=== PATIENT | female | born 1950 | race Caucasian/White ===

== ENCOUNTER → 2018-10-25 09:22 | Outpatient (CLI) | payer MEDICARE, SELFPAY ==
--- NOTE | 2018-10-25 09:31 | RAD_ITS ---
HISTORY: PAIN COMPARISON: None FINDINGS: XR Spine Cervical 3 Views: The cervical vertebra show normal height and alignment. No fracture or acute disease. Cervical disc space heights appear preserved. The posterior elements appear intact. No spondylolisthesis. The C1-C2 relationship appears normal. RAD/Cerv Spine 2 or 3 Views IMPRESSION: 1. No fracture or acute disease. No significant arthritis. 2. Cervical spine appears normal for age. at 0719 Reported and signed by: Narendra Garcia MD Electronically Signed: Narendra Garcia, at 7:17 EST Tel , Service support ,
--- NOTE | 2018-10-25 09:31 | RAD_ITS ---
HISTORY: PAIN COMPARISON: None FINDINGS: XR Spine Lumbar 2 views Generalized bony demineralization consistent with the patient's age. Lumbar hyperlordosis. Lumbar vertebra appear normal in height. No fracture seen. L4-5 and L5-S1 mild disc space narrowing. The posterior elements appear intact. No spondylolisthesis. SI joints appear preserved. Multiple surgical clips within the right abdomen. The abdominal aorta is atherosclerotic. RAD/Lumbar Spine 2 or 3 Views IMPRESSION: 1. No fracture or acute disease. 2. Mild degenerative changes. 3. Lumbar hyperlordosis. at 0723 Reported and signed by: Narendra Garcia MD Electronically Signed: Narendra Garcia, at 7:22 EST Tel , Service support ,
== END ==
PROVIDERS: Family Provider Family Medicine; PCP Family Medicine; Referring Provider Anesthesiology Pain Medicine; Visit Provider Anesthesiology Pain Medicine
DX: M54.2 Cervicalgia (principal); M54.9 Dorsalgia, unspecified
CPT/HCPCS: 72040; 72100

== ENCOUNTER → 2018-11-22 09:51 | Outpatient (CLI) | payer MEDICARE, SELFPAY ==
--- NOTE | 2018-11-22 10:13 | RAD_ITS ---
STUDY: X-RAY - LEFT KNEE REASON FOR EXAM: Female, 68 years old. Pain TECHNIQUE: 2 view(s) of the knee. COMPARISON: None. FINDINGS: There is no evidence of fracture or dislocation. There are no significant degenerative changes. There are no radiodense foreign bodies. RAD/Knee 1 or 2 Views IMPRESSION: Negative radiographs of the left knee. Electronically Signed: Morgan Ling, at 21:44 EST Tel , Service support ,
--- NOTE | 2018-11-22 10:14 | RAD_ITS ---
STUDY: X-RAY - RIGHT KNEE REASON FOR EXAM: Female, 68 years old. Pain TECHNIQUE: 2 view(s) of the knee. COMPARISON: None. FINDINGS: There is no evidence of fracture or dislocation. There are no significant degenerative changes. There are no radiodense foreign bodies. RAD/Knee 1 or 2 Views IMPRESSION: Negative radiographs of the right knee. Electronically Signed: Morgan Ling, at 21:41 EST Tel , Service support ,
[2018-11-22 11:14] LABS: Amphetamine Urine VISTA NEGATIVE (<1000 ng/mL); Barbiturate Urine VISTA NEGATIVE (< 200 ng/mL); Benzodiazepine Urine VISTA NEGATIVE (< 200 ng/mL); Cocaine Urine VISTA NEGATIVE (< 300 ng/mL); Ecstacy Urine VISTA POSITIVE (< 500 ng/mL); Methadone Urine VISTA NEGATIVE (< 300 ng/mL); PCP Urine VISTA NEGATIVE (< 25 ng/mL); THC Urine VISTA NEGATIVE (< 50 ng/mL); Vista UDS pH Range 5
== END ==
PROVIDERS: Family Provider Family Medicine; PCP Family Medicine; Referring Provider Anesthesiology Pain Medicine; Visit Provider Anesthesiology Pain Medicine
DX: F11.20 Opioid dependence, uncomplicated (principal); M25.569 Pain in unspecified knee
CPT/HCPCS: 73560; 80307

== ENCOUNTER → 2018-12-07 09:19 | Outpatient (CLI) | payer MEDICARE, SELFPAY ==
--- NOTE | 2018-12-07 09:35 | MRI_ITS ---
STUDY: MRI LUMBAR SPINE WITHOUT CONTRAST REASON FOR EXAM: Female, 68 years old. BACK AND LEG PAIN-LEFT SIDE; HX PRIOR SURGERY. TECHNIQUE: Standardized fat and water weighted pulse sequences were obtained in the sagittal and axial planes. COMPARISON: None FINDINGS: T12-L1: There is minimal disc space narrowing and endplate spondylosis. There is no significant disc herniation, central canal or foraminal stenosis. Normal lumbar lordosis. There is no substantial scoliosis. Normal conus medullaris that terminates at the L1 L1-2: There is minimal disc space narrowing and endplate spondylosis. There is no significant disc herniation, central canal or foraminal stenosis. L2-3: There is minimal disc space narrowing and endplate spondylosis. There is no significant disc herniation, central canal or foraminal stenosis. L3-4: There is minimal disc space narrowing and endplate spondylosis. There is no significant disc herniation, central canal or foraminal stenosis. L4-5: There is mild disc space narrowing and endplates spondylosis. There is a mild disc bulge asymmetric to the left with mild left lateral recess and mild left foraminal stenosis. There is a left hemilaminotomy. There is no significant central canal or right foraminal stenosis. L5-S1: There is mild disc space narrowing and endplates spondylosis. There is mild disc bulge and facet arthropathy without significant central canal or foraminal stenosis. There is a right laminectomy. Normal visualized sacral ala. Normal visualized paraspinous soft tissue structures. MRI/Spine Lumbar (Routine) IMPRESSION: L4/L5: Disc bulge with mild left lateral recess and foraminal stenosis. L5/S1: Right laminectomy. Electronically Signed: Jose Enrique Nicholas MD at 15:58 EDT Tel , Service support ,
== END ==
PROVIDERS: Family Provider Family Medicine; PCP Family Medicine; Referring Provider Anesthesiology Pain Medicine; Visit Provider Anesthesiology Pain Medicine
DX: M54.9 Dorsalgia, unspecified (principal); M79.606 Pain in leg, unspecified
CPT/HCPCS: 72148

== ENCOUNTER → 2018-12-29 09:38 | Outpatient (CLI) | payer MEDICARE, SELFPAY ==
--- NOTE | 2018-12-29 09:40 | NM_ITS ---
CLINICAL: 68-year-old female with reported history of primary lung carcinoma and current complaint of low back discomfort WHOLE BODY 99m Tc MDP RADIONUCLIDE BONE SCINTIGRAPHY COMPARISON: MRI of the lumbar spine report 12/07/2018 FINDINGS: Following the intravenous administration of 25.2 mCi of 99m Tc MDP, whole body bone images reveal: 1. Increased radiopharmaceutical concentration is identified in the acromioclavicular compartment of the right shoulder, bilateral elbows, right-left knees, the left hand. 2. The remaining skeletal structures are scintigraphically unremarkable with normal-appearing renal images and urinary bladder activity identified. An asymmetric increase in tracer concentration is defined in the left superior orbital ridge most consistent with a normal variant. NM/Bone Scan Whole Body IMPRESSION: 1. The increase in radiopharmaceutical concentration identified in the right shoulder, right and left elbows, left hand and knees bilaterally is most consistent with degenerative arthritis. 2. There is no definitive typical scintigraphic evidence of diffuse axial skeletal metastatic disease on the current examination. Electronically Signed: Lai Lujan DO at 21:59 EDT Tel , Service support ,
== END ==
PROVIDERS: Family Provider Family Medicine; PCP Family Medicine; Referring Provider Orthopaedic Surgery
DX: C34.90 Malignant neoplasm of unspecified part of unspecified bronchus or lung (principal)
CPT/HCPCS: 78306

== ENCOUNTER → 2019-01-05 16:58 | Outpatient (CLI) | payer MEDICARE, SELFPAY ==
--- NOTE | 2019-01-05 17:09 | MRI_ITS ---
STUDY: MRI LUMBAR SPINE WITH CONTRAST REASON FOR EXAM: Female, 68 years old. Preop for herniated nucleus pulposus TECHNIQUE: Standardized fat and water weighted pulse sequences were obtained in the sagittal and axial following administration of 14 IV Gadavist. COMPARISON: MRI of the lumbar spine on December 07, 2018 without contrast FINDINGS: T12-L1: Minor endplate spurring. Normal disc height, hydration and morphology. Normal bilateral facet joints. Normal central canal and bilateral lateral recesses. Normal bilateral intervertebral neural foramina. Normal lumbar lordosis. There is no substantial scoliosis. Normal conus medullaris that terminates at L1 L1-2: Minor disc space narrowing and endplate spurring. Normal hydration of the disc and morphology. Normal bilateral facet joints. Normal central canal and bilateral lateral recesses. Normal bilateral intervertebral neural foramina. L2-3: Minor endplate spurring and disc space narrowing. Normal hydration of the disc and morphology. Normal bilateral facet joints. Normal central canal and bilateral lateral recesses. Normal bilateral intervertebral neural foramina. L3-4: Minor endplate spurring. Normal disc height hydration and morphology Normal bilateral facet joints. Normal central canal and bilateral lateral recesses. Normal bilateral intervertebral neural foramina. L4-5: Status post left laminotomy. Mild disc space narrowing and endplate spurring. Desiccation of the disc with mild bulging of the annulus and small left posterolateral/foraminal disc protrusion. Asymmetric left facet arthropathy and thickening of ligamenta flava. Normal central canal bilateral recess and nerve root foramen. Moderate left lateral recess and neuroforaminal stenosis L5-S1: Status post right laminectomy. Normal endplates. Normal disc height, desiccation and minor annular bulge.. Normal bilateral facet joints. Normal central canal and bilateral lateral recesses. Normal bilateral intervertebral neural foramina. Normal visualized sacral ala. Normal visualized paraspinous soft tissue structures. Mild enhancing epidural fibrosis at the surgical sites most severe on the left L5-S1. No evidence for acute osteomyelitis or discitis MRI/Spine Lumbar WITH Contrast IMPRESSION: Postsurgical changes at L4-5 and L5-S1. Spinal stenosis on the left at L4-5 secondary to left posterolateral/foraminal disc protrusion and facet arthropathy. Minor annular bulge at L5-S1 without significant spinal stenosis. Electronically Signed: Ayo Espinoza MD at 18:55 EDT , Service support ,
== END ==
PROVIDERS: Family Provider Family Medicine; PCP Family Medicine; Referring Provider Orthopaedic Surgery; Visit Provider Orthopaedic Surgery
DX: M51.26 Other intervertebral disc displacement, lumbar region (principal)
CPT/HCPCS: 72149; A9575

== ENCOUNTER → 2019-01-11 16:17 | Outpatient (CLI) | payer MEDICARE, SELFPAY ==
[2019-01-11 17:26] LABS: Potassium 3.5 mmol/L (3.5-5.1)
== END ==
PROVIDERS: Family Provider Family Medicine; PCP Family Medicine; Referring Provider Family Medicine; Visit Provider Family Medicine
DX: E87.6 Hypokalemia (principal)
CPT/HCPCS: 36415; 84132

== ENCOUNTER 2019-08-12 11:08 | Observation (INO) | payer MEDICARE, SELFPAY ==
[2019-08-12] VITALS (8 sets, daily range): BP systolic 118–145; BP diastolic 62–87; PULSE 76–106; RESP 13–18; TEMP 36.7–37.1; O2SAT 96–99; BMI 23.5; BMI 23.6; BMI 23.7
--- NOTE | 2019-08-12 11:36 | CT_ITS ---
STUDY: CT ABDOMEN AND PELVIS WITH CONTRAST REASON FOR EXAM: Female, 69 years old. Nausea and vomiting and diarrhea for 3 days RADIATION DOSAGE (If Supplied By Facility): CTDIvol = ( 11.69 ) mGy, DLP = ( 656.62 ) mGycm TECHNIQUE: Transaxial images were obtained from the dome of the diaphragm to the symphysis pubis without oral contrast. IV Isovue 300 100 was administered. Sagittal and coronal images were reconstructed. Individualized dose optimization techniques were used for this CT. COMPARISON: None. FINDINGS: The visualized lung bases are unremarkable. The visualized portions of the heart are within normal limits. Normal liver. There are surgical clips in the gallbladder fossa consistent with a prior cholecystectomy. Expected prominence biliary system. Normal spleen. Normal pancreas. Normal bilateral adrenal glands. Normal right kidney. Normal left kidney. Normal visualized stomach. Fluid-filled distal small bowel and colon but no large or small bowel wall thickening. No mesenteric induration/inflammation. No large or small bowel obstruction. The appendix is visualized and appears normal. There is diffuse atherosclerotic calcification of the abdominal aorta, without a demonstrated aneurysm. Normal inferior vena cava. Normal retroperitoneum. Normal urinary bladder. Normal abdominal wall. There are degenerative changes of the lumbar spine. CT/Abdomen/Pelvis W IV Cont ONLY IMPRESSION: Distal small bowel and colon luminal fluid suggesting diarrheal disease/gastroenteritis. No bowel obstruction or large/small bowel wall thickening. Electronically Signed: Maynor Reese MD ([place]) at 13:29 EST , Service support ,
[2019-08-12] MEDS: Ondansetron 4 MG/2 ML Vial IV (11:52)
[2019-08-12] MEDS: Morphine 4 MG/ML Syringe IV ×3 (11:52→16:48)
[2019-08-12] MEDS: 0.9% Normal Saline 1,000 ML 1000 ML IV (11:53)
[2019-08-12 12:23] LABS: Absolute Neutrophil Count 6.4 X10^3/uL (2.0-7.7); Basophil# 0.01 X10^3/uL; Basophil% 0.1 % (0-1); Eosinophil# 0.12 X10^3/uL; Eosinophils% 1.5 % (0-5); Hematocrit 39.7 % (37-47); Hemoglobin 13.2 g/dL (12.0-15.0); Lymphocyte % 13.4 % (19-41); Mean Corp Hgb Conc 33.2 g/dL (32-36); Mean Corpuscular Volume 90.2 fL (81-99); Mean Platelet Vol. 9.6 fl (6.2-12.0); Monocyte# 0.58 X10^3/uL; Monocyte% 7.1 % (0-10); NRBC Flagged by Analyzer 0 % (0-5); Neutrophil # 6.38 X10^3/uL (2.7-7.7); Neutrophil % 77.7 % (47-70); POSITIVE MORPHOLOGY YES; Platelet Count 367 K/mm3 (150-450); RBC Distribution Width CV 12.6 % (11.6-14.6); RBC Distribution Width SD 41.6 fl (35.1-43.9); White Blood Count 8.2 K/mm3 (4.4-11.0)
[2019-08-12 12:24] LABS: Differential Indicated SCAN CRITERIA MET
[2019-08-12 12:52] LABS: ALB/GLOB Ratio 0.8 RATIO (0.9-2.4); AST(SGOT) 15 U/L (15-37); Alanine Aminotransfer ALT/SGPT 15 U/L (13-56); Albumin, Serum 3.5 g/dL (3.2-5.0); Alkaline Phosphatase 109 U/L (45-117); Anion Gap 11 (5-15); BUN 24 mg/dL (7-18); BUN/Creat Ratio 26.6 RATIO (10-20); Chloride 103 mmol/L (98-107); EST Glomerular Filtration Rate 66 mL/min (>60); Est Glom Filt Rate - Afr Amer 80 mL/min (>60); Estimated Creatinine Clearance 51.66 ml/min; Globulin 4.4 g/dL (2.2-4.2); Glucose 107 mg/dL (74-106); Lipase 66 U/L (73-393); Potassium 2.3 mmol/L (3.5-5.1); Protein, Total 7.9 g/dL (6.4-8.2); Sodium Level 139 mmol/L (136-145)
[2019-08-12 13:02] LABS: Magnesium 1.5 mg/dL (1.6-2.6)
[2019-08-12 13:35] LABS: Bacteria 0 SEEN /hpf (None Seen); Mucous, Urine 0 SEEN /hpf (<or=2+); White Blood Cells 0 SEEN /hpf (0-5)
[2019-08-12 13:38] LABS: Color, Urine Yellow (Yellow); Glucose, Dipstick Normal (Normal); Ketone-Dipstick 5 mg/dl (Negative); Leukocyte Esterase-Dipstick Negative /ul (Negative); Nitrite-Dipstick Negative (Negative); Occult Blood-Urine 25 /ul (Negative); Protein-Dipstick 30 mg/dl (Negative); Specific Gravity, Urine 1.015 (1.002-1.030); Urine Bilirubin Dipstick Negative (Negative); Urine Clarity Sl. Cloudy (Clear); Urine Urobilinogen Normal (Normal)
[2019-08-12] MEDS: Potassium Chloride 10mEq/100mL 10 MEQ/100 ML IV.SOLN. 100 MEQ IV BOLUS ×4 (13:42→17:03)
[2019-08-12 13:45] LABS: Red Blood Cells-Urine 0-5 SEEN /hpf (0-5); Squamous Epithelial Cells - UA 0-5 SEEN /hpf (5-10)
--- NOTE | 2019-08-12 13:54 | EKG12_ITS ---
Test Reason : N/V Blood Pressure : / mmHG Vent. Rate : 085 BPM Atrial Rate : 085 BPM P-R Int : 176 ms QRS Dur : 090 ms QT Int : 406 ms P-R-T Axes : 044 021 039 degrees QTc Int : 483 ms Normal sinus rhythm Normal ECG Confirmed by TALON SAMANO, EBONI ([id number]), staff editor JAGUAR CORREA ([id number]) on 08/15/2019 10:01:28 AM Referred By: Timo Buckley Confirmed By:EBONI HANLEY MD
--- NOTE | 2019-08-12 14:22 | ED.VISSUMM ---
- ER Visit Summary Date of Service: 08/12/19 Chief Complaint: Nausea, vomiting, diarrhea History of Present Illness: The patient is a 69 F with nausea, vomiting, and diarrhea since yesterday. Her had similar symptoms 3 days ago. They attributed it to bad fish. Diarrhea is nonbloody. She also reports lower abdominal cramping. History of hypokalemia, hypertension, and acid reflux. Denies fevers or any other associated symptoms. Physical Examination: Afebrile and vital signs unremarkable except for heart rate of 106. Heart is tachycardic. Lungs show no respiratory distress. Lower hemiabdomen tender to palpation without guarding or rebound. Skin appears normal. Test Results: EKG shows sinus rhythm at a rate of 85. CBC unremarkable. Potassium 2.3, magnesium 1.5. Hepatic panel and lipase unremarkable. Urinalysis unremarkable. CT shows findings concerning for diarrheal illness or gastroenteritis. Emergency Department Course and Treatment: Patient was treated with fluids, morphine, and Zofran while awaiting results. Testing indicated hypokalemia. Patient was monitored. EKG was done. She was treated with potassium. Magnesium was ordered. Work-up is consistent with a diarrheal illness or gastroenteritis. I am also concerned because of her hypokalemia. She will need admission for this. I spoke with the hospitalist and the patient will be observed in the PCU. Treatment Plan: As above Disposition: PCU observation Impression: 1. Diarrheal illness 2. Hypokalemia This note was generated with [employer] dictation software. It may contain incorrect words, spelling, and punctuation that were not noted in review of the chart prior to signing ED Disposition - Plan for ED Patient: Referrals: Carlito Rodrigues DO [Primary Care Provider] -
--- NOTE | 2019-08-12 15:11 | HP.PCM_ITS ---
Problem List (1) HTN (hypertension) Status: Chronic History of Present Illness Date of Admission: 08/12/19 Chief Complaint: Nausea, vomiting and diarrhea. The patient is a 69 year old F who presents to the emergency room due to intractable nausea, vomiting and diarrhea. Patient believes she got sick from fish that she cooked. She reports her and her had fish on Wednesday night and her became sick with similar symptoms shortly after. She then developed nausea, vomiting and diarrhea on and reports she has had about 20 bowel movements a day since that time and unable to tolerate oral intake due to nausea and vomiting. She denies blood in stool. Complains of abdominal cramping. Denies recent antibiotic use or exposure to sick contacts. She has a past medical history of lung cancer status post right middle lobe resection 5 years ago, hypertension, anxiety/depression, COPD, history of low potassium. Past Medical History Past Medical History (Chronic Problems): Chronic Problems HTN (hypertension) (Chronic) Allergies cyclobenzaprine [From Flexeril] Adverse Reaction (Verified 08/12/19 11:10) Other ARMS AND LEGS GO CRAZY tizanidine Adverse Reaction (Verified 08/12/19 11:10) Nausea Home Medications: Ambulatory Orders Medication Instructions Recorded Clonazepam 0.5 mg PO DAILY 08/12/19 Gabapentin [Neurontin] 400 mg PO BID 08/12/19 Hydrochlorothiazide [Hctz] 25 mg PO DAILY 08/12/19 Pantoprazole Sodium 40 mg PO DAILY 08/12/19 Potassium Chloride [Klor-Con] 20 meq PO DAILY 08/12/19 Umeclidinium [place] [Incruse 1 inh INHALATION DAILY 08/12/19 Ellipta] traZODone [Desyrel] 150 mg PO QHS 08/12/19 Surgical History: - - Tonsillectomy, cholecystectomy, appendectomy, hysterectomy, lumbar discectomy, renal surgery to correct renal torsion, right middle lobectomy. 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 Denies: Chills, Fever, Weight Change HEENT: Denies: Head Aches, Sinus Congestion, Sinus Drainage Cardiovascular: Denies: Chest Pain, Palpitations Respiratory: Denies: Cough, Shortness of breath at rest, Sputum production Gastrointestinal: Reports: Abdominal Pain, Diarrhea, Nausea, Vomiting. Denies: Hematemesis, Hematochezia, Melena Genitourinary: Denies: Dysuria Musculoskeletal: Denies: Joint Pain, Joint Tenderness Skin: Denies: Rash, Wounds Neurological: Denies: Numbness, Tingling, Focal weakness Psychiatric: Reports: Anxiety, Depression Hematologic/ Lymphatic: Denies: Easy Bruising, Easy Bleeding VTE Information - Inpt Only VTE Present on Admission: No VTE Mechan Device Prophylaxis: None VTE Pharm Prophylaxis ordered?: Yes - Physical Exam Vitals/I&O's: Vital Signs Temp Pulse Resp BP Pulse Ox 98.2 F 87 17 133/77 H 97 08/12/19 14:17 08/12/19 14:17 08/12/19 14:17 08/12/19 14:17 08/12/19 14:17 Oxygen Delivery Method Room Air Weight: 137 lb Body Mass Index (BMI) 23.5 Intake and Output for Last 24 Hours 08/10/19 08/11/19 08/12/19 23:59 23:59 23:59 Intake Total 1100 / 1100 Balance 1100 / 1100 General: Alert, Oriented x3, Cooperative HEENT: Atraumatic, PERRLA, EOMI, Normocephalic Oral: Dry Mucosa Neck: Supple, No JVD, Negative Carotid Bruits Lungs: Clear to auscultation, Normal air movement Cardiovascular: Regular rate, Regular Rhythm, Normal S1, Normal S2, No murmurs Abdomen: Bowel Sounds Present, Soft, Non-Distended, Hyperactive Bowel Sounds, Tender Extremities: No clubbing, No cyanosis, No edema, Capillary Refill Less than 3 Seconds Skin: No rashes, No breakdown Musculoskeletal: No Tenderness to Palpation of Joints or Extremities Neurological: Cranial nerves II-XII grossly intact, Neuro grossly intact Psych/Mental Status: Normal Affect, Appropriate Laboratory Results 08/12/19 11:40: WBC 8.2, RBC 4.40, Hgb 13.2, Hct 39.7, MCV 90.2, MCH 30.0, MCHC 33.2, RDW Std Deviation 41.6, RDW Coeff of Laura 12.6, Plt Count 367, MPV 9.6, Immature Gran % (Auto) 0.200, Neut % (Auto) 77.7 H, Lymph % (Auto) 13.4 L, [place]es % (Auto) 7.1, Eos % (Auto) 1.5, Baso % (Auto) 0.1, Absolute Neuts (auto) 6.4, Absolute Lymphs (auto) 1.10, Nucleated RBC % 0 08/12/19 11:40: Sodium 139, Potassium 2.3 L*, Chloride 103, Carbon Dioxide 25.0, Anion Gap 11, BUN 24 H, Creatinine 0.90, Estim Creat Clear Calc 51.66, Est GFR (MDRD) Af Amer 80, Est GFR (MDRD) Non-Af 66, BUN/Creatinine Ratio 26.6 H, Glucose 107 H, Calcium 9.0, Total Bilirubin 0.60, AST 15, ALT 15, Alkaline Phosphatase 109, Total Protein 7.9, Albumin 3.5, Globulin 4.4 H, Alb umin/Globulin Ratio 0.8 L, Lipase 66 L 08/12/19 11:40: Magnesium 1.5 L 08/12/19 13:30: Urine Color Yellow, Urine Clarity Sl. Cloudy, Urine pH 5.0, Ur Specific [place] 1.015, Urine Protein 30 H, Urine Glucose (UA) Normal, Urine Ketones 5 H, Urine Occult Blood 25 H, Urine Nitrite Negative, Urine Bilirubin Negative, Urine Urobilinogen Normal, Ur Leukocyte Esterase Negative, Urine RBC 0-5 SEEN, Urine WBC 0 SEEN, Ur Squamous Epith Cells 0-5 SEEN, Urine Bacteria 0 SEEN, Urine Mucus 0 SEEN Current Medications Potassium Chloride () 10 meq in 100 mls @ 100 mls/hr IV BOLUS Q1H NICHO Stop: 08/12/19 16:59 Last Admin: 08/12/19 14:46 Dose: 100 mls/hr Documented by: Assessment/Plan 1. Intractable nausea, vomiting and diarrhea-secondary to foodborne illness versus viral gastroenteritis. had similar symptoms. IV fluids. Full liquid diet. PRN antiemetic. 2. Hypokalemia/hypomagnesia-secondary to #1. Replace per protocol, trend BMP/Mg. 3. Hypertension-stable, hold home HCTZ regimen. 4. GERD-continue PPI. 5. Anxiety/depression-continue home clonazepam, trazodone regimen. 6. History of lung cancer status post right middle lobe resection-5 years ago, in remission. 7. Chronic COPD DVT prophylaxis- heparin sc This patient was seen by COREY Bruce under the supervision of Dr. Buckley.
[2019-08-12] MEDS: Magnesium Sulfate 4gm/100mL 4 GM/100 ML IV.SOLN. IV (17:14)
[2019-08-12] MEDS: Heparin Injection (Vial) 5,000 UNIT/ML VIAL 5000 UNIT SC (21:08)
[2019-08-12 22:29] LABS: Anion Gap 8 (5-15); BUN 17 mg/dL (7-18); BUN/Creat Ratio 27.4 RATIO (10-20); Calcium,Total 7.5 mg/dL (8.5-10.1); Chloride 111 mmol/L (98-107); Creatinine, Serum 0.62 mg/dL (0.55-1.02); EST Glomerular Filtration Rate 101 mL/min (>60); Est Glom Filt Rate - Afr Amer 123 mL/min (>60); Glucose 81 mg/dL (74-106); Potassium 3.1 mmol/L (3.5-5.1); Sodium Level 143 mmol/L (136-145)
[2019-08-13] VITALS (8 sets, daily range): BP systolic 125–140; BP diastolic 60–71; PULSE 64–87; RESP 16; TEMP 36.6–37.3; O2SAT 96–100
[2019-08-13] MEDS: Ondansetron 4 MG/2 ML Vial IV ×2 (00:41→08:58)
[2019-08-13] MEDS: Potassium Chloride 10mEq/100mL 10 MEQ/100 ML IV.SOLN. 100 MEQ IV BOLUS ×4 (01:50→04:40)
[2019-08-13 06:59] LABS: Anion Gap 7 (5-15); BUN 11 mg/dL (7-18); BUN/Creat Ratio 18.1 RATIO (10-20); Calcium,Total 7.2 mg/dL (8.5-10.1); Chloride 112 mmol/L (98-107); Creatinine, Serum 0.61 mg/dL (0.55-1.02); EST Glomerular Filtration Rate 104 mL/min (>60); Est Glom Filt Rate - Afr Amer 126 mL/min (>60); Glucose 66 mg/dL (74-106); Magnesium 2.4 mg/dL (1.6-2.6); Potassium 4.4 mmol/L (3.5-5.1); Sodium Level 141 mmol/L (136-145)
[2019-08-13] MEDS: Morphine 4 MG/ML Syringe IV ×4 (07:55→19:39)
[2019-08-13] MEDS: 0.9% Saline Lock 10 ML Syringe IV ×3 (07:56→16:19)
[2019-08-13] MEDS: Heparin Injection (Vial) 5,000 UNIT/ML VIAL 5000 UNIT SC ×2 (08:59→20:57)
--- NOTE | 2019-08-13 11:22 | PCM.PROGNOTE ---
Subjective: Patient seen and examined. Reports diarrhea improved overnight however worsened again early this morning. Patient reports history of C. difficile x2 in the past which she did not mention on admission. Will check stool for C. difficile and enteric bacteriology. Denies nausea or vomiting. Reports poor appetite. - Physical Exam Vitals/I&O's: Vital Signs Temp Pulse Resp BP Pulse Ox 98.4 F 78 16 125/64 H 96 08/13/19 09:13 08/13/19 09:13 08/13/19 09:13 08/13/19 09:13 08/13/19 09:13 Oxygen Delivery Method Room Air Weight: 138 lb Body Mass Index (BMI) 23.6 Intake and Output for Last 24 Hours 08/11/19 08/12/19 08/13/19 23:59 23:59 23:59 Intake Total 2447.09 / 2447.09 1261.67 / 1261.67 Balance 2447.09 / 2447.09 1261.67 / 1261.67 General: Alert, Oriented x3, Cooperative HEENT: Atraumatic, PERRLA, EOMI, Normocephalic Neck: Supple, No JVD, Negative Carotid Bruits Lungs: Clear to auscultation, Normal air movement Cardiovascular: Regular rate, Regular Rhythm, Normal S1, Normal S2, No murmurs Abdomen: Bowel Sounds Present, Soft, Hyperactive Bowel Sounds, Tender Extremities: No clubbing, No cyanosis, No edema, Capillary Refill Less than 3 Seconds Skin: No rashes, No breakdown Musculoskeletal: No Tenderness to Palpation of Joints or Extremities Neurological: Cranial nerves II-XII grossly intact, Neuro grossly intact Psych/Mental Status: Normal Affect, Appropriate Laboratory Results 08/12/19 11:40: WBC 8.2, RBC 4.40, Hgb 13.2, Hct 39.7, MCV 90.2, MCH 30.0, MCHC 33.2, RDW Std Deviation 41.6, RDW Coeff of Laura 12.6, Plt Count 367, MPV 9.6, Immature Gran % (Auto) 0.200, Neut % (Auto) 77.7 H, Lymph % (Auto) 13.4 L, [place] % (Auto) 7.1, Eos % (Auto) 1.5, Baso % (Auto) 0.1, Absolute Neuts (auto) 6.4, Absolute Lymphs (auto) 1.10, Nucleated RBC % 0 08/12/19 11:40: Sodium 139, Potassium 2.3 L*, Chloride 103, Carbon Dioxide 25.0, Anion Gap 11, BUN 24 H, Creatinine 0.90, Estim Creat Clear Calc 51.66, Est GFR (MDRD) Af Amer 80, Est GFR (MDRD) Non-Af 66, BUN/Creatinine Ratio 26.6 H, Glucose 107 H, Calcium 9.0, Total Bilirubin 0.60, AST 15, ALT 15, Alkaline Phosphatase 109, Total Protein 7.9, Albumin 3.5, Globulin 4.4 H, Albumin/Globulin Ratio 0.8 L, Lipase 66 L 08/12/19 11:40: Magnesium 1.5 L 08/12/19 13:30: Urine Color Yellow, Urine Clarity Sl. Cloudy, Urine pH 5.0, Ur Specific [place] 1.015, Urine Protein 30 H, Urine Glucose (UA) Normal, Urine Ketones 5 H, Urine Occult Blood 25 H, Urine Nitrite Negative, Urine Bilirubin Negative, Urine Urobilinogen Normal, Ur Leukocyte Esterase Negative, Urine RBC 0-5 SEEN, Urine WBC 0 SEEN, Ur Squamous Epith Cells 0-5 SEEN, Urine Bacteria 0 SEEN, Urine Mucus 0 SEEN 08/12/19 21:25: Sodium 143, Potassium 3.1 L, Chloride 111 H, Carbon Dioxide 24.0, Anion Gap 8, BUN 17, Creatinine 0.62, Estim Creat Clear Calc 46.50, Est GFR (MDRD) Af Amer 123, Est GFR (MDRD) Non-Af 101, BUN/Creatinine Ratio 27.4 H, Glucose 81, Calcium 7.5 L 08/13/19 05:33: Sodium 141, Potassium 4.4, Chloride 112 H, Carbon Dioxide 22.0, Anion Gap 7, BUN 11, Creatinine 0.61, Estim Creat Clear Calc 46.50, Est GFR (MDRD) Af Amer 126, Est GFR (MDRD) Non-Af 104, BUN/Creatinine Ratio 18.1, Glucose 66 L, Calcium 7.2 L, Magnesium 2.4 Current Medications Clonazepam (Klonopin) 0.5 mg PO DAILY [facility] Last Admin: 08/13/19 08:58 Dose: Not Given Documented by: Gabapentin (Neurontin) 400 mg PO BID [facility] Last Admin: 08/13/19 08:58 Dose: Not Given Documented by: Heparin Sodium (Porcine) (Heparin Na) 5,000 unit SC Q12 [facility] Last Admin: 08/13/19 08:59 Dose: 5,000 unit Documented by: Potassium Chloride/Sodium Chloride () 1,000 mls @ 150 mls/hr IV .Q6H40M [facility] Last Admin: 08/13/19 05:39 Dose: 150 mls/hr Documented by: Morphine Sulfate () 4 mg IV Q3H PRN PRN PRN Reason: Pain Score 6-10/10 Last Admin: 08/13/19 07:55 Dose: 4 mg Documented by: Nutritional Formula (Lactose Free) (Ensure Enlive) 120 ml PO 4X/DAY [facility] Last Admin: 08/13/19 08:58 Dose: Not Given Documented by: Ondansetron HCl (Zofran) 4 mg IV Q8H PRN PRN PRN Reason: NAUSEA/VOMITING Last Admin: 08/13/19 08:58 Dose: 4 mg Documented by: Pantoprazole Sodium (Protonix) 40 mg PO DAILY [facility] Last Admin: 08/13/19 08:59 Dose: Not Given Documented by: Potassium Chloride (K-Dur) 20 meq PO DAILYCM [facility] Last Admin: 08/13/19 07:38 Dose: Not Given Documented by: Sodium Chloride () 10 - 40 ml IV UD PRN PRN Reason: SALINE FLUSH Last Admin: 08/13/19 08:58 Dose: 10 ml Documented by: Trazodone HCl (Desyrel) 150 mg PO QHS [facility] Last Admin: 08/12/19 20:30 Dose: Not Given Documented by: Medical Necessity - Tobacco Use Smoking Status: Former smoker Assessment/Plan 1. Intractable nausea, vomiting and diarrhea-secondary to foodborne illness versus viral gastroenteritis. R/O Cdiff. Send stool for C. difficile and enteric bacteriology. IV fluids. Full liquid diet. PRN antiemetic. 2. Hypokalemia/hypomagnesia-secondary to #1. Replaced per protocol, resolved. 3. Hypertension-stable, hold home HCTZ regimen. 4. GERD-continue PPI. 5. Anxiety/depression-continue home clonazepam, trazodone regimen. 6. History of lung cancer status post right middle lobe resection-5 years ago, in remission. 7. Chronic COPD DVT prophylaxis- heparin sc This patient was seen by COREY Bruce under the supervision of Dr. Buckley.
[2019-08-14] VITALS (13 sets, daily range): BP systolic 123–148; BP diastolic 60–71; PULSE 77–91; RESP 16–18; TEMP 36.9–37.6; O2SAT 96–99
[2019-08-14] MEDS: Morphine 4 MG/ML Syringe IV ×3 (00:52→08:53)
[2019-08-14 06:20] LABS: Anion Gap 10 (5-15); BUN 5 mg/dL (7-18); BUN/Creat Ratio 8.1 RATIO (10-20); Calcium,Total 7.7 mg/dL (8.5-10.1); Chloride 109 mmol/L (98-107); Creatinine, Serum 0.62 mg/dL (0.55-1.02); EST Glomerular Filtration Rate 102 mL/min (>60); Est Glom Filt Rate - Afr Amer 123 mL/min (>60); Glucose 67 mg/dL (74-106); Potassium 3.8 mmol/L (3.5-5.1); Sodium Level 140 mmol/L (136-145)
[2019-08-14] MEDS: 0.9% Saline Lock 10 ML Syringe IV ×3 (08:53→22:33)
[2019-08-14] MEDS: Heparin Injection (Vial) 5,000 UNIT/ML VIAL 5000 UNIT SC ×2 (09:13→21:54)
--- NOTE | 2019-08-14 11:00 | CASEMGMT ---
This RN MARTHA to room with MERCADO form at this time, explanation done-pt voices understanding, and signs MERCADO form at this time. Original to chart and copy to pt at this time. Pt voices no further questions/concerns/needs at this time. [place]
--- NOTE | 2019-08-14 12:15 | PCM.PROGNOTE ---
Subjective: Patient seen and examined. Continues to have diarrhea although improved. Stool positive for C. difficile and norovirus, discussed in length with patient. Patient reports is still sick with diarrhea as well and is following up with his primary doctor this afternoon. - Physical Exam Vitals/I&O's: Vital Signs Temp Pulse Resp BP Pulse Ox 99.1 F 86 16 148/67 H 99 08/14/19 11:39 08/14/19 11:39 08/14/19 11:39 08/14/19 11:39 08/14/19 11:39 Oxygen Delivery Method Room Air Weight: 138 lb 0.009 oz Body Mass Index (BMI) 23.6 Intake and Output for Last 24 Hours 08/12/19 08/13/19 08/14/19 23:59 23:59 23:59 Intake Total 2447.09 / 2447.09 3969.17 / 3969.17 1062.5 / 1062.5 Balance 2447.09 / 2447.09 3969.17 / 3969.17 1062.5 / 1062.5 General: Alert, Oriented x3, Cooperative HEENT: Atraumatic, PERRLA, EOMI, Normocephalic Neck: Supple, No JVD, Negative Carotid Bruits Lungs: Clear to auscultation, Normal air movement Cardiovascular: Regular rate, Regular Rhythm, Normal S1, Normal S2, No murmurs Abdomen: Bowel Sounds Present, Soft, Non Tender, Non-Distended Extremities: No clubbing, No cyanosis, No edema, Capillary Refill Less than 3 Seconds Skin: No rashes, No breakdown Musculoskeletal: No Tenderness to Palpation of Joints or Extremities Neurological: Cranial nerves II-XII grossly intact, Neuro grossly intact Psych/Mental Status: Normal Affect, Appropriate Microbiology Past 72 Hours 08/13/19 14:39 Stool Enteric Bacteriology - Final Norovirus 08/13/19 14:39 Stool C. difficile DNA Amplification - Final Toxigenic C. difficile DNA Laboratory Results 08/14/19 05:35: Sodium 140, Potassium 3.8, Chloride 109 H, Carbon Dioxide 21.0, Anion Gap 10, BUN 5 L, Creatinine 0.62, Estim Creat Clear Calc 46.50, Est GFR (MDRD) Af Amer 123, Est GFR (MDRD) Non-Af 102, BUN/Creatinine Ratio 8.1 L, Glucose 67 L, Calcium 7.7 L Current Medications Clonazepam (Klonopin) 0.5 mg PO DAILY [facility] Last Admin: 08/14/19 08:56 Dose: Not Given Documented by: Gabapentin (Neurontin) 400 mg PO BID [facility] Last Admin: 08/14/19 08:56 Dose: Not Given Documented by: Heparin Sodium (Porcine) (Heparin Na) 5,000 unit SC Q12 [facility] Last Admin: 08/14/19 09:13 Dose: 5,000 unit Documented by: Potassium Chloride/Sodium Chloride () 1,000 mls @ 150 mls/hr IV .Q6H40M [facility] Last Admin: 08/14/19 07:00 Dose: 150 mls/hr Documented by: Morphine Sulfate () 4 mg IV Q3H PRN PRN PRN Reason: Pain Score 6-10/10 Last Admin: 08/14/19 08:53 Dose: 4 mg Documented by: Nutritional Formula (Lactose Free) (Ensure Enlive) 120 ml PO 4X/DAY [facility] Last Admin: 08/14/19 08:56 Dose: Not Given Documented by: Ondansetron HCl (Zofran) 4 mg IV Q8H PRN PRN PRN Reason: NAUSEA/VOMITING Last Admin: 08/13/19 08:58 Dose: 4 mg Documented by: Potassium Chloride (K-Dur) 20 meq PO DAILYCM [facility] Last Admin: 08/14/19 08:56 Dose: Not Given Documented by: Sodium Chloride () 10 - 40 ml IV UD PRN PRN Reason: SALINE FLUSH Last Admin: 08/14/19 08:53 Dose: 10 ml Documented by: Trazodone HCl (Desyrel) 150 mg PO QHS [facility] Last Admin: 08/13/19 19:40 Dose: Not Given Documented by: Vancomycin HCl () 125 mg PO Q6 [facility] Last Admin: 08/14/19 11:35 Dose: 125 mg Documented by: Medical Necessity - Tobacco Use Smoking Status: Former smoker Assessment/Plan 1. Acute C. difficile and acute norovirus-diarrhea improving. IV fluids. Continue vancomycin 125mg PO Q6 hours. Plan for 14 days of treatment. Full liquid. 2. Hypokalemia/hypomagnesia-secondary to #1. Replaced per protocol, resolved. 3. Hypertension-stable, hold home HCTZ regimen. 4. GERD-continue PPI. 5. Anxiety/depression-continue home clonazepam, trazodone regimen. 6. History of lung cancer status post right middle lobe resection-5 years ago, in remission. 7. Chronic COPD DVT prophylaxis- heparin sc This patient was seen by COREY Burce under the supervision of Dr. Buckley.
[2019-08-14] MEDS: Morphine 2 MG/ML Syringe IV ×3 (14:12→22:33)
[2019-08-15] MEDS: Morphine 2 MG/ML Syringe IV ×2 (01:58→06:24)
[2019-08-15] MEDS: 0.9% Saline Lock 10 ML Syringe IV ×3 (01:58→08:27)
[2019-08-15 02:59] VITALS: PULSE 75
[2019-08-15 05:38] VITALS: BP 141/74; PULSE 86; RESP 16; TEMP 37.3; O2SAT 97
[2019-08-15 07:40] VITALS: PULSE 83
[2019-08-15 08:03] VITALS: BP 145/72; PULSE 82; RESP 18; TEMP 37.2; O2SAT 99
[2019-08-15] MEDS: Ondansetron 4 MG/2 ML Vial IV (08:27)
[2019-08-15] MEDS: Heparin Injection (Vial) 5,000 UNIT/ML VIAL 5000 UNIT SC (10:40)
--- NOTE | 2019-08-15 11:03 | DCINST_ITS ---
- Discharge Diagnoses Current Active Problems: Current Active and Chronic Problems HTN (hypertension) (Chronic) You will use the following diet at home:: No restrictions Discharge Activity: Return to Normal Activity Call your doctor if you observe: Shortness of breath, Dizziness, Fainting spells, Chest pain Allergies/Adverse Reactions: Allergies cyclobenzaprine [From Flexeril] Adverse Reaction (Verified 08/12/19 11:10) Other ARMS AND LEGS GO CRAZY tizanidine Adverse Reaction (Verified 08/12/19 11:10) Nausea Medications to take at Discharge Clonazepam 0.5 mg PO DAILY 08/12/19 Gabapentin [Neurontin] 400 mg PO BID 08/12/19 Pantoprazole Sodium 40 mg PO DAILY 08/12/19 Potassium Chloride [Klor-Con] 20 meq PO DAILY 08/12/19 Umeclidinium [place] [Incruse Ellipta] 1 inh INHALATION DAILY 08/12/19 traZODone [Desyrel] 150 mg PO QHS 08/12/19 Dicyclomine HCl [Bentyl] 20 mg PO TID PRN #60 cap 08/15/19 Lisinopril [Zestril] 10 mg PO DAILY #30 tab 08/15/19 Vancomycin [Vancocin] 125 mg PO Q6H #40 cap 08/15/19 The following prescriptions were given: Dicyclomine HCl [Bentyl] 20 mg PO TID PRN #60 cap PRN Reason: abdominal cramping Transmission Status: Pending to [facility] #30 Vancomycin [Vancocin] 125 mg PO Q6H #40 cap Prescription Printed Lisinopril [Zestril] 10 mg PO DAILY #30 tab Transmission Status: Pending to [facility] #30 Primary Care Physician: Carlito Rodrigues DO [Primary Care Provider] - Please follow up with your Primary Care Physician in: 1 Week Test Results: Test results from this visit will be discussed in further detail at your follow- up appointment, if applicable. Proposed Discharge Date: 08/15/19
--- NOTE | 2019-08-15 11:05 | DS.PCM_ITS ---
Discharge Date and Diagnosis Date of Admission: 08/12/19 Date of Discharge: 08/15/19 - Primary Discharge Diagnosis 1. Acute C. difficile and acute norovirus 2. Hypokalemia/hypomagnesia-secondary to #1. Resolved. 3. Hypertension 4. GERD 5. Anxiety/depression 6. History of lung cancer status post right middle lobe resection-5 years ago, in remission. 7. Chronic COPD - Secondary Discharge Diagnosis Chronic Problems HTN (hypertension) (Chronic) Hospital Course and Treatment Imaging Results: Diagnostic Data Abdomen/Pelvis CT 08/12/19 11:36 IMPRESSION: Distal small bowel and colon luminal fluid suggesting diarrheal disease/gastroenteritis. No bowel obstruction or large/small bowel wall thickening. Electronically Signed: Maynor Reese MD ([place]) at 13:29 EST , Service support , Operations: None Procedures: None Summary of Care Provided: The patient is a 69 year old F admitted 08/12/2018 due to nausea, vomiting and diarrhea. 1. Acute C. difficile and acute norovirus-diarrhea improved. Continue vancomycin 125mg PO Q6 hours. Patient to complete 14 days of oral vancomycin. Recommend follow-up with primary care provider, if patient continues to have symptoms recommend discontinuing vancomycin for 1 week and then completing an additional 10-day course of oral vancomycin. Discharged on as needed Bentyl for abdominal cramping. Follow-up with primary care provider next week. 2. Hypokalemia/hypomagnesia-secondary to #1. Replaced per protocol, resolved. Home potassium supplementation discontinued given patient was taken off of HCTZ. Recommend repeat BMP by primary care provider in 1 week. 3. Hypertension-home HCTZ regimen discontinued due to chronic low potassium. Initiated on lisinopril 10 mg daily. 4. GERD-continue PPI. 5. Anxiety/depression-continue home clonazepam, trazodone regimen. 6. History of lung cancer status post right middle lobe resection-5 years ago, in remission. 7. Chronic COPD General: Alert, Oriented x3, Cooperative HEENT: Atraumatic, PERRLA, EOMI, Normocephalic Neck: Supple, No JVD, Negative Carotid Bruits Lungs: Clear to auscultation, Normal air movement Cardiovascular: Regular rate, Regular Rhythm, Normal S1, Normal S2, No murmurs Abdomen: Bowel Sounds Present, Soft, Non Tender, Non-Distended Extremities: No clubbing, No cyanosis, No edema, Capillary Refill Less than 3 Seconds Skin: No rashes, No breakdown Musculoskeletal: No Tenderness to Palpation of Joints or Extremities Neurological: Cranial nerves II-XII grossly intact, Neuro grossly intact Psych/Mental Status: Normal Affect, Appropriate Patient seen and examined prior to discharge. Physical assessment as noted above. Patient is stable for discharge with follow up recommendations as noted above. This patient was seen by COREY Bruce under the supervision of Dr. Buckley. - Physical Exam Vitals/I&O's: Vital Signs Temp Pulse Resp BP Pulse Ox 99.0 F 82 18 145/72 H 99 08/15/19 08:03 08/15/19 08:03 08/15/19 08:03 08/15/19 08:03 08/15/19 08:03 Oxygen Delivery Method Room Air Weight: 138 lb 0.009 oz Body Mass Index (BMI) 23.6 Intake and Output for Last 24 Hours 08/13/19 08/14/19 08/15/19 23:59 23:59 23:59 Intake Total 3969.17 / 3969.17 3112.5 / 3112.5 1984 Balance 3969.17 / 3969.17 3112.5 / 3112.5 1984 Microbiology Past 72 Hours 08/13/19 14:39 Stool Enteric Bacteriology - Final Norovirus 08/13/19 14:39 Stool C. difficile DNA Amplification - Final Toxigenic C. difficile DNA Current Medications Clonazepam (Klonopin) 0.5 mg PO DAILY [facility] Last Admin: 08/15/19 10:37 Dose: Not Given Documented by: Dicyclomine HCl (Bentyl) 20 mg PO TID PRN PRN Reason: cramping Gabapentin (Neurontin) 400 mg PO BID [facility] Last Admin: 08/15/19 10:37 Dose: Not Given Documented by: Heparin Sodium (Porcine) (Heparin Na) 5,000 unit SC Q12 [facility] Last Admin: 08/15/19 10:40 Dose: 5,000 unit Documented by: Potassium Chloride/Sodium Chloride () 1,000 mls @ 150 mls/hr IV .Q6H40M [facility] Last Admin: 08/15/19 08:34 Dose: 150 mls/hr Documented by: Morphine Sulfate () 1 - 2 mg IV Q3H PRN PRN PRN Reason: Pain Score 6-10/10 Last Admin: 08/15/19 06:24 Dose: 2 mg Documented by: Nutritional Formula (Lactose Free) (Ensure Enlive) 120 ml PO 4X/DAY [facility] Last Admin: 08/15/19 10:37 Dose: Not Given Documented by: Ondansetron HCl (Zofran) 4 mg IV Q8H PRN PRN PRN Reason: NAUSEA/VOMITING Last Admin: 08/15/19 08:27 Dose: 4 mg Documented by: Potassium Chloride (K-Dur) 20 meq PO DAILYCM [facility] Last Admin: 08/15/19 07:58 Dose: Not Given Documented by: Sodium Chloride () 10 - 40 ml IV UD PRN PRN Reason: SALINE FLUSH Last Admin: 08/15/19 08:27 Dose: 10 ml Documented by: Trazodone HCl (Desyrel) 150 mg PO QHS [facility] Last Admin: 08/14/19 21:56 Dose: Not Given Documented by: Vancomycin HCl () 125 mg PO Q6 [facility] Last Admin: 08/15/19 06:24 Dose: 125 mg Documented by: Discharge Diet: No Restrictions Discharge Activity: Return to Normal Activity Call your doctor if you observe: Shortness of breath, Dizziness, Fainting spells, Chest pain Home Medications: Medications to take at Discharge Clonazepam 0.5 mg PO DAILY 08/12/19 Gabapentin [Neurontin] 400 mg PO BID 08/12/19 Pantoprazole Sodium 40 mg PO DAILY 08/12/19 Potassium Chloride [Klor-Con] 20 meq PO DAILY 08/12/19 Umeclidinium [place] [Incruse Ellipta] 1 inh INHALATION DAILY 08/12/19 traZODone [Desyrel] 150 mg PO QHS 08/12/19 Dicyclomine HCl [Bentyl] 20 mg PO TID PRN #60 cap 08/15/19 Lisinopril [Zestril] 10 mg PO DAILY #30 tab 08/15/19 Vancomycin [Vancocin] 125 mg PO Q6H #40 cap 08/15/19 Following Prescrptions Were Given to Patient: Dicyclomine HCl [Bentyl] 20 mg PO TID PRN #60 cap PRN Reason: abdominal cramping Transmission Status: Pending to [facility] #30 Vancomycin [Vancocin] 125 mg PO Q6H #40 cap Prescription Printed Lisinopril [Zestril] 10 mg PO DAILY #30 tab Transmission Status: Pending to [facility] #30 Primary Care Physician: Carlito Rodrigues DO [Primary Care Provider] - Please follow up with your Primary Care Physician in: 1 Week Disposition: Home Minutes spent on discharge:: 35 Patient Condition:: Stable Medical Necessity - Tobacco Use Smoking Status: Former smoker Meaningful Use Info Meaningful Use Diagnoses (Choose all that apply): None applicable
--- NOTE | 2019-08-15 11:12 | CASEMGMT ---
Addendum entered by Michelle Kahn 08/15/19 11:53: Per tech at [facility], pt's co-pay for vancomycin is $100 at this time. [place] PALACIOS CM Original Note: Pt to be sent home on vancomycin and med sent to [facility] pharmacy at this time. This PHILIP THOMAS to place call to [facility] to check coverage/co-pay. [place] PALACIOS CM
[2019-08-15 12:20] VITALS: PULSE 81
[2019-08-15 12:55] VITALS: BP 122/77; PULSE 87; RESP 18; TEMP 36.9; O2SAT 96
[2019-08-15] MEDS: Dicyclomine 10 MG Capsule 20 MG PO (13:02)
--- NOTE | 2019-08-15 13:15 | PHA.DC.MC ---
Pharmacy Service has performed discharge medication reconciliation and counseling for this patient. 1. DICYCLOMINE 20MG PO TID PRN ABDOMINAL CRAMPING 2. LISINOPRIL 10MG PO DAILY 3. VANCOMYCIN 125MG PO Q6H X 10 DAYS The patient's discharge medication list was reviewed for discrepancies and discrepancies were resolved. Home Medications Clonazepam 0.5 mg PO DAILY 08/12/19 Gabapentin [Neurontin] 400 mg PO BID 08/12/19 Pantoprazole Sodium 40 mg PO DAILY 08/12/19 Umeclidinium [place] [Incruse Ellipta] 1 inh INHALATION DAILY 08/12/19 traZODone [Desyrel] 150 mg PO QHS 08/12/19 Dicyclomine HCl [Bentyl] 20 mg PO TID PRN #60 cap 08/15/19 Lisinopril [Zestril] 10 mg PO DAILY #30 tab 08/15/19 Vancomycin [Vancocin] 125 mg PO Q6H #40 cap 08/15/19 The patient was counseled on the following discharge medications and changes in medications for homegoing were reviewed. The Reason for Use, instructions for use, and potential side effects were reviewed for all new medications. The patient's questions regarding all of their medications were answered. The patient was able to verbally demonstrate an understanding of their discharge medications.
== END 2019-08-15 11:03 | disposition home or self-care (01) ==
LOC: ED 14:26 → PCU 14:54
PROVIDERS: Nurse Practitioner Family; Admitting Provider Internal Medicine; Emergency Provider Emergency Medicine; Family Provider Student in an Organized Health Care Education/Training Program; PCP Student in an Organized Health Care Education/Training Program; Referring Provider Internal Medicine; Visit Provider Internal Medicine
DX: A04.72 Enterocolitis due to Clostridium difficile, not specified as recurrent (principal); A08.19 Acute gastroenteropathy due to other small round viruses; E87.6 Hypokalemia; E83.42 Hypomagnesemia; I10 Essential (primary) hypertension; K21.9 Gastro-esophageal reflux disease without esophagitis; F41.9 Anxiety disorder, unspecified; F32.9 Major depressive disorder, single episode, unspecified; J44.9 Chronic obstructive pulmonary disease, unspecified; Z79.899 Other long term (current) drug therapy; Z85.118 Personal history of other malignant neoplasm of bronchus and lung; Z87.891 Personal history of nicotine dependence
CPT/HCPCS: 36415; 74177; 80048; 80053; 81001; 83690; 83735; 85025; 87493; 87506; 93005; 96361; 96372; 96374; 96375; 96376; 97802; 99218; 99285; J7030; Q9967; A4216; G0378; J2405

== ENCOUNTER 2019-08-16 17:49 | Emergency (ER) | payer MEDICARE, SELFPAY ==
[2019-08-12 15:50] VITALS: BMI 23.6
[2019-08-16 17:51] VITALS: BP 102/81; PULSE 110; RESP 18; TEMP 36.1; O2SAT 97; BMI 23.1
[2019-08-16 17:54] VITALS: BP 120/74; PULSE 85; RESP 18; TEMP 36.5; O2SAT 97
--- NOTE | 2019-08-16 18:06 | CT_ITS ---
STUDY: CT ABDOMEN AND PELVIS WITHOUT CONTRAST REASON FOR EXAM: Female, 69 years old. Abdominal pain and chills. RADIATION DOSAGE (If Supplied By Facility): CTDIvol = ( 6.18 ) mGy, DLP = ( 277.78 ) mGycm TECHNIQUE: Transaxial images were obtained from the dome of the diaphragm to the symphysis pubis without oral contrast, and without intravenous contrast. Sagittal and coronal images were reconstructed. Individualized dose optimization techniques were used for this CT. COMPARISON: 08/12/2019. FINDINGS: The visualized lung bases are unremarkable. The visualized portions of the heart are within normal limits. Normal liver. There are surgical clips in the gallbladder fossa consistent with a prior cholecystectomy. Normal spleen. Normal pancreas. Normal bilateral adrenal glands. Normal right kidney. Normal left kidney. Evaluation of the GI tract is limited by absence of oral contrast. Cannot exclude stomach wall thickening. No dilated loops of bowel or evidence for obstruction. Cannot exclude segmental thickening of the [place] of the small or large bowel. Cannot exclude enteritis or colitis. Appendix within normal limits. There is diffuse atherosclerotic calcification of the abdominal aorta, without a demonstrated aneurysm. Normal inferior vena cava. Normal retroperitoneum. Normal urinary bladder. There is absence of the uterus consistent with a prior hysterectomy. Normal abdominal wall. Normal osseous structures. CT/Abdomen/Pelvis without Cont IMPRESSION: No definite acute or significant abnormality seen. Electronically Signed: Ole Jackson MD at 19:17 EST , Service support ,
--- NOTE | 2019-08-16 18:08 | ED.DCSUM_ITS ---
- ER Visit Summary Date of Service: 08/16/19 Chief Complaint: Abdominal pain History of Present Illness: The patient is a 69 F who continues with abdominal pain and diarrhea. She was admitted earlier this week for C. difficile and norovirus. She went home last night but she is not improving. She states her pain was improved until about 2 hours ago. The pain increased. It is diffuse and cramping. Nothing makes it better or worse. She does not feel nauseous at this time. She continues with loose watery stools. She is on vancomycin at home. No urinary symptoms. Physical Examination: Vital signs reviewed. HEENT exam unremarkable. Heart is tachycardic and regular rhythm without murmurs. Lungs are clear to auscultation. Abdomen is soft with diffuse tenderness. There is voluntary guarding and hyperactive bowel sounds as well. Extremities reveal no edema. Skin exam normal. Neurologic exam normal. Test Results: Laboratory studies show a white blood count 11.3, potassium 3.4. Creatinine normal. Lactate normal. CAT scan of the abdomen pelvis is unremarkable Emergency Department Course and Treatment: Patient was given saline, Bentyl and Zofran. Upon reevaluation her pain is improved. She is not nauseous. She is worried about this tremulousness and shakiness. She then tells me that she stopped taking her Klonopin, trazodone and Neurontin when she got home because the doctors here told her not to take it. However, in the discharge summary it says that she should continue her home Klonopin and trazodone. I told her to restart these medications and this would likely help with her shakiness. She will continue the Bentyl and oral vancomycin at home. She will call her doctors for follow-up Treatment Plan: [] Disposition: Discharge Impression: Abdominal pain, C. difficile This note was generated with [employer] dictation software. It may contain incorrect words, spelling, and punctuation that were not noted in review of the chart prior to signing ED Disposition - Plan for ED Patient: Referrals: Carlito Rodrigues DO [Primary Care Provider] -
[2019-08-16 18:25] VITALS: BP 119/81; PULSE 90; RESP 18; O2SAT 97
[2019-08-16] MEDS: Dicyclomine 20 MG/2 ML Vial IM (18:27)
[2019-08-16] MEDS: Ondansetron 4 MG/2 ML Vial IV (18:27)
[2019-08-16] MEDS: 0.9% Normal Saline 1,000 ML 1000 ML IV (18:27)
[2019-08-16 19:07] LABS: Absolute Lymphocyte Count 1.82 X10^3/uL (0.83-4.51); Absolute Neutrophil Count 8.7 X10^3/uL (2.0-7.7); Basophil# 0.03 X10^3/uL; Basophil% 0.3 % (0-1); Eosinophil# 0.06 X10^3/uL; Eosinophils% 0.5 % (0-5); Hematocrit 40.3 % (37-47); Hemoglobin 13.5 g/dL (12.0-15.0); Lymphocyte # 1.82 X10^3/ul (4.0); Lymphocyte % 16.1 % (19-41); Mean Corp Hgb Conc 33.5 g/dL (32-36); Mean Corpuscular Volume 89.6 fL (81-99); Mean Platelet Vol. 9.6 fl (6.2-12.0); Monocyte# 0.68 X10^3/uL; NRBC Flagged by Analyzer 0 % (0-5); Neutrophil # 8.66 X10^3/uL (2.7-7.7); Neutrophil % 76.6 % (47-70); Platelet Count 449 K/mm3 (150-450); RBC Distribution Width CV 12.8 % (11.6-14.6); RBC Distribution Width SD 41.8 fl (35.1-43.9); White Blood Count 11.3 K/mm3 (4.4-11.0)
[2019-08-16 19:15] LABS: Lactic Acid 1.5 mmol/L (0.4-2.0)
[2019-08-16 19:18] LABS: AST(SGOT) 19 U/L (15-37); Alanine Aminotransfer ALT/SGPT 21 U/L (13-56); Albumin, Serum 3.5 g/dL (3.2-5.0); Alkaline Phosphatase 100 U/L (45-117); Anion Gap 17 (5-15); BUN 10 mg/dL (7-18); BUN/Creat Ratio 14.3 RATIO (10-20); Bilirubin, Direct 0.11 mg/dL (0.00-0.30); Calcium,Total 9.5 mg/dL (8.5-10.1); Chloride 106 mmol/L (98-107); EST Glomerular Filtration Rate 88 mL/min (>60); Est Glom Filt Rate - Afr Amer 107 mL/min (>60); Globulin 4.3 g/dL (2.2-4.2); Glucose 89 mg/dL (74-106); Lipase 128 U/L (73-393); Potassium 3.4 mmol/L (3.5-5.1); Protein, Total 7.8 g/dL (6.4-8.2); Sodium Level 139 mmol/L (136-145)
--- NOTE | 2019-08-16 19:58 | ED.DEP ---
ED Disposition - Plan for ED Patient: Disposition: Home or Assisted Living Instructions: ABDOMINAL PAIN, Unknown Cause, (Female) Referrals: Carlito Rodrigues DO [Primary Care Provider] -
[2019-08-16 20:12] VITALS: BP 153/69; PULSE 82; TEMP -7.7; TEMP 18; O2SAT 98
== END 2019-08-16 20:23 | disposition home or self-care (01) ==
PROVIDERS: Emergency Provider Emergency Medicine; Family Provider Student in an Organized Health Care Education/Training Program; PCP Student in an Organized Health Care Education/Training Program
DX: R10.9 Unspecified abdominal pain (principal); A04.72 Enterocolitis due to Clostridium difficile, not specified as recurrent; I10 Essential (primary) hypertension
CPT/HCPCS: 74176; 80048; 80076; 83605; 83690; 85025; 96361; 96372; 96374; 99283; J7030; A4216; J2405

== ENCOUNTER 2019-08-26 11:22 | Observation (INO) | payer MEDICARE, SELFPAY ==
[2019-08-26] VITALS (9 sets, daily range): BP systolic 146–165; BP diastolic 68–88; PULSE 66–82; RESP 11–18; TEMP 36.4–36.7; O2SAT 95–98; BMI 24.3; BMI 23.9; BMI 24.0
--- NOTE | 2019-08-26 11:56 | EKG12_ITS ---
Test Reason : DYSRHYTHMIA Blood Pressure : / mmHG Vent. Rate : 069 BPM Atrial Rate : 069 BPM P-R Int : 150 ms QRS Dur : 080 ms QT Int : 414 ms P-R-T Axes : 042 024 037 degrees QTc Int : 443 ms Normal sinus rhythm Normal ECG Confirmed by CLARE SAMANO, MARKO ([id number]), desk editor JASON HERNANDEZ ([id number]) on 08/27/2019 12:03:12 PM Referred By: Ira Awad Confirmed By:RENEA SPARKS MD
[2019-08-26 12:20] LABS: Absolute Lymphocyte Count 1.64 X10^3/uL (0.83-4.51); Absolute Neutrophil Count 5.4 X10^3/uL (2.0-7.7); Basophil# 0.03 X10^3/uL; Basophil% 0.4 % (0-1); Eosinophil# 0.06 X10^3/uL; Eosinophils% 0.8 % (0-5); Hematocrit 35.4 % (37-47); Hemoglobin 11.5 g/dL (12.0-15.0); Lymphocyte # 1.64 X10^3/ul (4.0); Lymphocyte % 21.4 % (19-41); Mean Corp Hgb Conc 32.5 g/dL (32-36); Mean Corpuscular Hgb 29.9 pg (27.0-32.0); Mean Corpuscular Volume 92.2 fL (81-99); Mean Platelet Vol. 9.6 fl (6.2-12.0); Monocyte# 0.56 X10^3/uL; Monocyte% 7.3 % (0-10); NRBC Flagged by Analyzer 0 % (0-5); Neutrophil # 5.35 X10^3/uL (2.7-7.7); Neutrophil % 69.7 % (47-70); Platelet Count 421 K/mm3 (150-450); RBC Distribution Width CV 12.7 % (11.6-14.6); RBC Distribution Width SD 42.5 fl (35.1-43.9); Red Blood Count 3.84 M/mm3 (4.2-5.4); White Blood Count 7.7 K/mm3 (4.4-11.0)
[2019-08-26 12:47] LABS: D-Dimer Quantitative (DVT/PE) 0.72 FEU/ug/m (0.27-0.49)
[2019-08-26 12:48] LABS: ALB/GLOB Ratio 0.8 RATIO (0.9-2.4); AST(SGOT) 13 U/L (15-37); Alanine Aminotransfer ALT/SGPT 16 U/L (13-56); Albumin, Serum 3.3 g/dL (3.2-5.0); Alkaline Phosphatase 89 U/L (45-117); Anion Gap 6 (5-15); BUN 11 mg/dL (7-18); BUN/Creat Ratio 14.1 RATIO (10-20); Chloride 106 mmol/L (98-107); Creatinine, Serum 0.78 mg/dL (0.55-1.02); EST Glomerular Filtration Rate 78 mL/min (>60); Est Glom Filt Rate - Afr Amer 95 mL/min (>60); Globulin 3.9 g/dL (2.2-4.2); Glucose 80 mg/dL (74-106); Potassium 3.4 mmol/L (3.5-5.1); Protein, Total 7.2 g/dL (6.4-8.2); Sodium Level 142 mmol/L (136-145)
--- NOTE | 2019-08-26 12:54 | CT_ITS ---
STUDY: CTA CHEST/THORAX REASON FOR EXAM: Female, 69 years old. Left leg edema x 2 days, left upper chest pressure. RADIATION DOSAGE (If Supplied By Facility): CTDIvol = ( 7.96 ) mGy, DLP = ( 271.52 ) mGycm TECHNIQUE: The examination was performed with the intravenous administration of 100CC ISOVUE 370. Post-processing of the angiographic images was performed, with multiplanar reformation and 3D reconstruction. Individualized dose optimization techniques were used for this CT. COMPARISON: None. FINDINGS: Normal enhancement of the main pulmonary artery and right and left pulmonary arteries. Normal enhancement of the bilateral peripheral pulmonary arteries. There is no demonstrated pulmonary embolism. There is atherosclerotic calcification of the aortic arch and descending thoracic aorta. There is no demonstrated aortic dissection. Normal heart and pericardium. Normal mediastinum. Normal hilar regions. Normal visualized trachea and bronchi. The lungs are well expanded. There are emphysematous changes in the bilateral lungs with centrilobular and panlobular bullae most numerous and largest in the upper lung zones, greater on the right. Curvilinear density related to postsurgical scarring seen in the anteromedial and inferolateral right upper lobe Normal pleura. Normal chest wall structures. There are multilevel mild degenerative changes of thoracic spine. Normal visualized upper abdomen. CT/CTA Chest W/WO Contrast IMPRESSION: 1. No demonstrated pulmonary embolism or arterial dissection. 2. Emphysematous changes in the bilateral lung chaparro. There are also postsurgical changes in the right upper lobe. 3. Atherosclerotic calcification of the thoracic aorta. No demonstrated aneurysm. Electronically Signed: Reece Woodard MD at 14:01 EST , Service support ,
[2019-08-26 12:57] LABS: BNP,B-Type NATRIURETIC PEPTIDE 91.7 pg/mL (0-100)
--- NOTE | 2019-08-26 13:08 | ED.DCSUM_ITS ---
- ER Visit Summary Date of Service: 08/26/19 Chief Complaint: Bilateral leg swelling History of Present Illness: The patient is a [address] Rodrigues. She reports that she has swelling of her legs that began 2 days ago. She reports that the right has improved greatly, but that the left continues to be swollen. She reports that her ankle and foot feel stretched. She reports this is 7-10 at worst and 5-10 currently. Is increased with walking and is decreased with rest. She denies any recent trauma. Patient has no personal family history of DVT. No recent travel. She was hospitalized last month. On review of systems patient reports that she has chest pain that began yesterday morning. Is 5 out of 10 at worst and she is pain-free currently. Is brought on by exertion or deep breaths full and last proximal 1 minute. It resolves with rest. She has never had a heart catheterization. She had a stress test approximate 15 years ago. She has a family history, high blood pressure, and high cholesterol as her risk factors for coronary artery disease. Patient reports she has a chronic nonproductive cough that is unchanged. She denies any fever, chills, or other complaints. Physical Examination: Vitals: Stable. Afebrile. General: Well-nourished and well-developed. Head: Normocephalic atraumatic. Neck: Supple, no lymphadenopathy. No JVD. Nontender. Cardiovascular: Regular rate and rhythm. No murmurs. Respiratory: No respiratory distress. Clear to auscultation bilaterally. Abdominal: Soft, nontender, nondistended, normal bowel sounds. No guarding, rebound, or peritoneal signs. Back: Nontender. Extremities: Nontender, 1+ pitting edema over lower extremes bilaterally. Left greater than right. Skin: Normal color, no rash. Neurologic: Alert and oriented ?3. Cranial nerves II through XII are intact. Normal strength and sensation. Psych: Normal affect. Test Results: EKG is sinus at [address] changes. Troponin is negative. Dimer is minimally elevated at 0.72. LFTs are marked for an AST of 13. Chem-7 is marked potassium 3.4. CBC is marked for an H&H 11.5 and 35.4. BTNP is 91.7 Patient had a chest x-ray yesterday at [facility] that the report was faxed here and showed no acute disease. This was not repeated. CT chest shows Emergency Department Course and Treatment: Patient is resting comfortably. She refused pain or nausea medications. She was given a dose of aspirin p.o. Treatment Plan: Had a prolonged discussion the patient at this time I do not have an explanation for her exertional chest pain. She was discussed with Dr. Awad. She will be admitted to the hospital for further ablation treatment. Disposition: Patient will be admitted to the hospital for further evaluation and treatment. Impression: 1. Chest pain. 2. Peripheral edema. This note was generated with [employer] dictation software. It may contain incorrect words, spelling, and punctuation that were not noted in review of the chart prior to signing ED Disposition - Plan for ED Patient: Referrals: Carlito Rodrigues DO [Primary Care Provider] -
--- NOTE | 2019-08-26 14:53 | HP.PCM_ITS ---
Problem List (1) Chest pain Status: Acute Qualifiers: Chest pain type: unspecified Qualified Code(s): R07.9 - Chest pain, unspecified (2) Bilateral lower extremity edema Status: Acute (3) Hypokalemia Status: Acute (4) Chronic obstructive pulmonary disease Status: Chronic Qualifiers: COPD type: unspecified COPD Qualified Code(s): J44.9 - Chronic obstructive pulmonary disease, unspecified (5) Former tobacco use Status: Chronic (6) Anxiety Status: Chronic (7) C. difficile colitis Status: Resolved (8) HLD (hyperlipidemia) Status: Chronic Qualifiers: Hyperlipidemia type: unspecified Qualified Code(s): E78.5 - Hyperlipidemia, unspecified (9) History of lung cancer Status: Chronic History of Present Illness Date of Admission: 08/26/19 Chief Complaint: Chest pain The patient is a 69 y/o F w/ PMHx: Hx Lung CA s/p resection, Chronic COPD, HTN, HLD, IBS, recent 08/13/19 diagnosis of norovirus and c-diff ~ 2 weeks prior with regimen of flagyl currently ongoing, Anxiety who presents to the [facility] ED on 08/26/19 with now onset bilateral lower extremity pedal and ankle edema ongoing over the last several days, left greater than right with intermittent chest discomfort, tightness, rated 5/10 at its worse, starting the day prior in the morning, lasting minutes, primarily onset with exertion, improves with rest with referral to the ED per PCP secondary to concerns from the lower extremity swelling for possible DVT or pulmonary embolism. Currently patient notes pain resolved, 0/10. Patient notes that recent history of diarrhea has completely resolved and she is now on second antibiotic therapy and course to treat her c difficile. She notes that she has never seen infectious disease and discussed with her possibility of future follow-up if recurrent for pulse dosing and consideration of fecal transplant. Work-up in the ED included CBC with WBC 7.7, hemoglobin 11.5, platelet 421 without shift, d-dimer 0.72, CMP potassium 3.4, troponin less than 0.015, BNP 91.7, EKG with sinus rhythm with nonspecific changes with no acute evidence of ischemia, CTPA with no demonstrated PE or arterial dissection, emphysematous changes bilateral lung chaparro with postsurgical changes in the right upper lobe. In the ED patient administered aspirin therapy. Past Medical History Past Medical History (Chronic Problems): Chronic Problems HTN (hypertension) (Chronic) Chronic obstructive pulmonary disease (Chronic) Former tobacco use (Chronic) Anxiety (Chronic) HLD (hyperlipidemia) (Chronic) History of lung cancer (Chronic) Allergies cyclobenzaprine [From Flexeril] Adverse Reaction (Verified 08/26/19 11:24) Other ARMS AND LEGS GO CRAZY tizanidine Adverse Reaction (Verified 08/26/19 11:24) Nausea Home Medications: Ambulatory Orders Medication Instructions Recorded Clonazepam 0.5 mg PO DAILY 08/12/19 Gabapentin [Neurontin] 400 mg PO BID 08/12/19 Umeclidinium [place] [Incruse 1 inh INHALATION DAILY 08/12/19 Ellipta] traZODone [Desyrel] 150 mg PO QHS 08/12/19 Dicyclomine HCl [Bentyl] 20 mg PO TID PRN #60 cap 08/15/19 Metronidazole 500 mg PO TID 08/26/19 Spironolactone 25 mg PO BID 08/26/19 Surgical History: - - Tonsillectomy, cholecystectomy, appendectomy, hysterectomy, lumbar discectomy, renal surgery to correct renal torsion, right middle lobectomy. 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 Denies: Chills, Fever, Weight Change HEENT: Denies: Head Aches, Sinus Congestion, Sinus Drainage Cardiovascular: Reports: Chest Pain, Edema. Denies: Chest Pressure, Chest Tightness, Light Headedness, Orthopnea, Palpitations, Syncope Respiratory: Reports: Shortness of Breath. Denies: Cough, Shortness of breath at rest, Shortness of breath upon exertion, Sputum production, Wheezing Gastrointestinal: Reports: Diarrhea. Denies: Abdominal Pain, Nausea, Vomiting Genitourinary: Denies: Dysuria Musculoskeletal: Reports: Joint Pain. Denies: Joint Tenderness Skin: Denies: Rash, Wounds Neurological: Denies: Numbness, Tingling, Focal weakness Psychiatric: Reports: Anxiety. Denies: Depression, Homicidal Ideations, Suicidal Ideations Hematologic/ Lymphatic: Denies: Easy Bruising, Easy Bleeding VTE Information - Inpt Only VTE Present on Admission: No VTE Mechan Device Prophylaxis: SCD's VTE Pharm Prophylaxis ordered?: Yes Patient Problems: Active and Suspected Problems Bilateral lower extremity edema (Acute) Hypokalemia (Acute) Chest pain (Acute) Subjective: Seated upright in ED bed, currently chest discomfort free, no acute distress. Objective: Physical Examination: General: awake, alert, oriented x 3 and cooperative, seated upright in the ED bed in no apparent distress, no current chest discomfort. Skin: normal color, turgor, no icterus, cyanosis. HEENT: AT/NC, EOMI, PERRLA, mildly dry MM, no carotid bruits or JVD noted. Lungs: CTA bilaterally, moderate effort, moderate decrease BL bases, no rales, ronchi or wheezing. Heart: Regular r rate and rhythm; no gallop, rub audible. Abdomen: soft, NTTP, ND, normal BS, no HSM. Extremities: no cyanosis, clubbing, no marketed pedal or ankle edema, she notes recently resolved from day prior. Neurological: patient awake, alert, oriented x 3; cognitive function intact; pupils equally reactive to light and accomodation; cranial nerves II-XII grossly normal, moving all 4 extremities, no focal deficits, strength mildly global decrease. Psychiatric: affect appears normal, no acute evidence of depressive or anxiety feelings. - Physical Exam Vitals/I&O's: Vital Signs Temp Pulse Resp BP Pulse Ox 97.6 F L 66 11 L 152/73 H 98 08/26/19 11:26 08/26/19 12:26 08/26/19 12:26 08/26/19 12:26 08/26/19 12:26 Oxygen Delivery Method Room Air Weight: 141 lb 12.8 oz Body Mass Index (BMI) 24.3 Laboratory Results 08/26/19 12:10: WBC 7.7, RBC 3.84 L, Hgb 11.5 L, Hct 35.4 L, MCV 92.2, MCH 29.9, MCHC 32.5, RDW Std Deviation 42.5, RDW Coeff of Laura 12.7, Plt Count 421, MPV 9 .6, Immature Gran % (Auto) 0.400, Neut % (Auto) 69.7, Lymph % (Auto) 21.4, [place] % (Auto) 7.3, Eos % (Auto) 0.8, Baso % (Auto) 0.4, Absolute Neuts (auto) 5.4, Absolute Lymphs (auto) 1.64, Nucleated RBC % 0 08/26/19 12:10: D-Dimer Quant (PE/DVT) 0.72 H* 08/26/19 12:10: Sodium 142, Potassium 3.4 L, Chloride 106, Carbon Dioxide 30.0, Anion Gap 6, BUN 11, Creatinine 0.78, Estim Creat Clear Calc 46.50, Est GFR (MDRD) Af Amer 95, Est GFR (MDRD) Non-Af 78, BUN/Creatinine Ratio 14.1, Glucose 80, Calcium 9.0, Total Bilirubin 0.20, AST 13 L, ALT 16, Alkaline Phosphatase 89, Troponin I < 0.015, Total Protein 7.2, Albumin 3.3, Globulin 3.9, Albumin/Globulin Ratio 0.8 L 08/26/19 12:10: B-Natriuretic Peptide 91.7 Assessment/Plan All Active Problems Bilateral lower extremity edema (Acute) Hypokalemia (Acute) C. difficile colitis (Resolved) Chest pain (Acute) The patient is a 69 y/o F w/ PMHx: Hx Lung CA s/p resection, Chronic COPD, HTN, HLD, IBS, recent 08/13/19 diagnosis of norovirus and c-diff ~ 2 weeks prior with regimen of flagyl currently ongoing, Anxiety who presents to the [facility] ED on 08/26/19 with now onset bilateral lower extremity pedal and ankle edema ongoing over the last several days, left greater than right with intermittent chest discomfort starting the day prior in the morning, lasting minutes, primarily onset with exertion, improves with rest. 1. Chest Pain: EKG in ED with no acute evidence of ischemia, CTPA with no demonstrated PE or arterial dissection, emphysematous changes bilateral lung chaparro with postsurgical changes in the right upper lobe, initial trop normal x 1. Will admit to PCU, place on a monitored bed to assure no acute myocardial infarction with serial cardiac enzymes and EKGs. If cardiac enzymes and repeat EKGs remain unremarkable will pursue AM nuclear stress testing. ASA, NG, morphine. Mag pending. FLP in AM. 2. Recent BL LE edema, Unclear etiology: Suspect secondary to recently discontinued hydrochlorothiazide, unclear why specifically left greater than right, ED evaluation not marked, notes was more severe day prior, but started spironolactone recently. CTPA unremarkable, will obtain DVT ultrasound lower extremities, will maintain on therapeutic Lovenox in the interim in case there is a DVT present but low suspicion, BNP normal level. Continue cardiac evaluation as noted above. 3. Recent admission with Diagnosis norovirus, C. difficile: Patient recent presentation with diagnosis on 08/13/2019 with norovirus and c difficile. Patient with now 3rd episode c-diff, given concurrent norovirus, ? false positive. Currently on Flagyl regimen. Recommend to follow-up with ID in the future if recurrent for pulse dose and consideration of fecal transplant. 4. Chronic COPD: Will maintain on oxygen with wean as tolerated to room air/home oxygen supplementation, continue ATC duonebs, PRN albuterol, HOB, IS parameters. 5. Hypertension: Continue home regimen including spironolactone, PRN hydralazine. 6. Hypokalemia: Admission K+ 3.4, supplementation given, repeat level in AM. 7. Chronic COPD: Hold home inhaler given NF, in interim will maintain on budesonide in interim, PRN albuterol, HOB, IS parameters. 8. History of lung cancer, status post resection, CTPA with noted postsurgical changes right upper lobe. 9. Anxiety: We will continue patient home clonazepam as well as nightly high- dose trazodone. 10. DVT Prophylaxis: Therapeutic lovenox pending DVT US, low suspicion. Code Visit OBSV E&M: 69270 Initial observation care L3
--- NOTE | 2019-08-26 15:01 | NURSING ---
PCU OBS WHITE CP
[2019-08-26] MEDS: Aspirin 81 MG TAB.CHEW 324 MG PO (15:22)
--- NOTE | 2019-08-26 15:47 | EKG12_ITS ---
Test Reason : CP Blood Pressure : / mmHG Vent. Rate : 070 BPM Atrial Rate : 070 BPM P-R Int : 156 ms QRS Dur : 080 ms QT Int : 408 ms P-R-T Axes : 050 040 042 degrees QTc Int : 440 ms Normal sinus rhythm Normal ECG No previous ECGs available Confirmed by CLARE SAMANO, MARKO ([id number]), clinical editor JASON HERNANDEZ ([id number] on 08/27/2019 12:14:12 PM Referred By: Ira Awad Confirmed By:RENEA SPARKS MD
[2019-08-26 16:46] LABS: Magnesium 1.8 mg/dL (1.6-2.6)
[2019-08-26] MEDS: Enoxaparin 60 MG/0.6 ML Syringe SC (17:05)
[2019-08-26] MEDS: 0.9% Normal Saline 1,000 ML 100 ML IV (17:13)
[2019-08-26] MEDS: 0.9% Saline Lock 10 ML Syringe IV (17:13)
[2019-08-26] MEDS: Budesonide Respules 0.5 MG/2 ML AMPUL.NEB. INHALATION (19:26)
[2019-08-26] MEDS: Gabapentin 400 MG Capsule PO (19:57)
[2019-08-26] MEDS: metroNIDAZOLE 500 MG Tablet PO (19:57)
[2019-08-26] MEDS: Spironolactone 25 MG Tablet PO (21:43)
[2019-08-26] MEDS: traZODone 100 MG Tablet 150 MG PO (21:43)
[2019-08-27] VITALS (11 sets, daily range): BP systolic 128–142; BP diastolic 57–72; PULSE 66–88; RESP 16–18; TEMP 36.4–36.8; O2SAT 95–99
--- NOTE | 2019-08-27 05:55 | EKG12_ITS ---
Test Reason : AM EKG Blood Pressure : / mmHG Vent. Rate : 076 BPM Atrial Rate : 076 BPM P-R Int : 150 ms QRS Dur : 078 ms QT Int : 406 ms P-R-T Axes : 064 052 056 degrees QTc Int : 456 ms Normal sinus rhythm Normal ECG Confirmed by CLARE SAMANO, MARKO ([id number]), editor managing director JASON HERNANDEZ ([id number]) on 08/27/2019 12:13:18 PM Referred By: Ira Awad Confirmed By:RENEA SPARKS MD
[2019-08-27] MEDS: clonazePAM 0.5 MG Tablet PO (06:09)
[2019-08-27] MEDS: metroNIDAZOLE 500 MG Tablet PO ×3 (06:09→20:12)
[2019-08-27] MEDS: Acetaminophen 325 MG Tablet 650 MG PO (06:10)
[2019-08-27] MEDS: Enoxaparin 60 MG/0.6 ML Syringe SC (06:10)
[2019-08-27 07:34] LABS: Absolute Lymphocyte Count 1.62 X10^3/uL (0.83-4.51); Basophil# 0.03 X10^3/uL; Basophil% 0.5 % (0-1); Eosinophil# 0.12 X10^3/uL; Eosinophils% 1.9 % (0-5); Hematocrit 29.9 % (37-47); Hemoglobin 9.8 g/dL (12.0-15.0); Lymphocyte # 1.62 X10^3/ul (4.0); Lymphocyte % 25.8 % (19-41); Mean Corp Hgb Conc 32.8 g/dL (32-36); Mean Corpuscular Hgb 29.8 pg (27.0-32.0); Mean Corpuscular Volume 90.9 fL (81-99); Mean Platelet Vol. 9.4 fl (6.2-12.0); Monocyte# 0.48 X10^3/uL; Monocyte% 7.7 % (0-10); NRBC Flagged by Analyzer 0 % (0-5); Neutrophil # 4.01 X10^3/uL (2.7-7.7); Neutrophil % 63.9 % (47-70); Platelet Count 373 K/mm3 (150-450); RBC Distribution Width CV 12.7 % (11.6-14.6); RBC Distribution Width SD 42.1 fl (35.1-43.9); Red Blood Count 3.29 M/mm3 (4.2-5.4); White Blood Count 6.3 K/mm3 (4.4-11.0)
[2019-08-27 07:50] LABS: Anion Gap 4 (5-15); BUN 9 mg/dL (7-18); BUN/Creat Ratio 12.5 RATIO (10-20); Calcium,Total 8.5 mg/dL (8.5-10.1); Chloride 107 mmol/L (98-107); Cholesterol 181 mg/dL (200); Creatinine, Serum 0.72 mg/dL (0.55-1.02); EST Glomerular Filtration Rate 86 mL/min (>60); Est Glom Filt Rate - Afr Amer 104 mL/min (>60); Glucose 87 mg/dL (74-106); High Density Lipoprotein 41 mg/dL; Potassium 3.6 mmol/L (3.5-5.1); Sodium Level 141 mmol/L (136-145); Triglycerides 142 mg/dL; Very Low Density Lipoprotein 28 mg/dL (5-40)
--- NOTE | 2019-08-27 08:26 | PCM.PN.HOSP ---
Patient Problems: Active and Suspected Problems Bilateral lower extremity edema (Acute) Hypokalemia (Acute) Chest pain (Acute) Subjective: The patient is a 69 y/o F w/ PMHx: Hx Lung CA s/p resection, Chronic COPD, HTN, HLD, IBS, recent 08/13/19 diagnosis of norovirus and c-diff ~ 2 weeks prior with regimen of flagyl currently ongoing, Anxiety who presents to the [facility] ED on 08/26/19 with now onset bilateral lower extremity pedal and ankle edema ongoing over the last several days, left greater than right with intermittent chest discomfort starting the day prior in the morning, lasting minutes, primarily onset with exertion, improves with rest. EKG in ED with no acute evidence of ischemia, CTPA with no demonstrated PE or arterial dissection, emphysematous changes bilateral lung chaparro with postsurgical changes in the right upper lobe, initial trop normal x 1. Admitted to the PCU, maintained on a monitored bed to assure no acute myocardial infarction with serial cardiac enzymes and EKGs which remained unremarkable. Given cardiac enzyme series and repeat EKGs unremarkable plan to continue with cardiac stress testing 08/28/2019 a.m. Plan n.p.o. after midnight, initiation of low-dose IV fluids while n.p.o. status. ASA, NG, morphine. Mag 1.8. FLP with triglycerides 142, total cholesterol 181, LDL 112, VLDL 28, HDL 41. Patient recent presentation with diagnosis on 08/13/2019 with norovirus and c difficile. Patient with now 3rd episode c-diff, given concurrent norovirus, ? false positive but does has prior history. Currently on Flagyl regimen following recent oral vancomycin course per her PCP office. Recommend to follow-up with ID in the future if recurrent for pulse dose, alternate regimen than current flagyl and consideration of fecal transplant. Patient overnight with no acute complaints nor recurrent chest discomfort but did states she has had a tension headache with notable bilateral neck and shoulder, upper strain, slept poorly. Following examination with concern for tension headache amenable to initiation of low-dose tizanidine which is listed as intolerance as well as anti-inflammatory x1 especially given ongoing evaluation of heart. Patient declines any recurrent diarrhea at this time. Patient denies fevers, chills, nausea, emesis, abdominal pain, recurrent or worsened chest pain or dyspnea. Objective: Physical Examination: General: awake, alert, oriented x 3 and cooperative, seated upright in the PCU bed in no apparent distress, notes headache currently, tension type. Skin: normal color, turgor, no icterus, cyanosis. HEENT: AT/NC, EOMI, PERRLA, improved MMM. Lungs: CTA bilaterally, moderate effort, moderate decrease BL bases, no rales, ronchi or wheezing. Heart: Regular rate and rhythm; no gallop, rub audible. Abdomen: soft, NTTP, ND, normal BS. Extremities: no cyanosis, clubbing, no marketed pedal or ankle edema, BL superior shoulder notable muscular and also cervical muscular tension. Neurological: patient awake, alert, oriented x 3; cognitive function intact; pupils equally reactive to light and accomodation; cranial nerves II-XII grossly normal, moving all 4 extremities, no focal deficits, strength mildly global decrease. Psychiatric: affect appears fatigued, no acute evidence of depressive or anxiety feelings. Vitals/I&O's: Vital Signs Temp Pulse Resp BP Pulse Ox 97.8 F 72 16 128/57 H 97 08/27/19 03:50 08/27/19 07:03 08/27/19 03:50 08/27/19 03:50 08/27/19 03:50 Oxygen Delivery Method Room Air Weight: 139 lb 8.842 oz Body Mass Index (BMI) 23.9 Intake and Output for Last 24 Hours 08/25/19 08/26/19 08/27/19 23:59 23:59 23:59 Intake Total 165 / 515 350 / 350 Balance 165 / 515 350 / 350 Laboratory Results 08/26/19 12:10: WBC 7.7, RBC 3.84 L, Hgb 11.5 L, Hct 35.4 L, MCV 92.2, MCH 29.9, MCHC 32.5, RDW Std Deviation 42.5, RDW Coeff of Laura 12.7, Plt Count 421, MPV 9.6, Immature Gran % (Auto) 0.400, Neut % (Auto) 69.7, Lymph % (Auto) 21.4, [place] % (Auto) 7.3, Eos % (Auto) 0.8, Baso % (Auto) 0.4, Absolute Neuts (auto) 5.4, Absolute Lymphs (auto) 1.64, Nucleated RBC % 0 08/26/19 12:10: D-Dimer Quant (PE/DVT) 0.72 H* 08/26/19 12:10: Sodium 142, Potassium 3.4 L, Chloride 106, Carbon Dioxide 30.0, Anion Gap 6, BUN 11, Creatinine 0.78, Estim Creat Clear Calc 46.50, Est GFR (MDRD) Af Amer 95, Est GFR (MDRD) Non-Af 78, BUN/Creatinine Ratio 14.1, Glucose 80, Calcium 9.0, Total Bilirubin 0.20, AST 13 L, ALT 16, Alkaline Phosphatase 89, Troponin I < 0.015, Total Protein 7.2, Albumin 3.3, Globulin 3.9, Albumin/Globulin Ratio 0.8 L 08/26/19 12:10: B-Natriuretic Peptide 91.7 08/26/19 16:00: Magnesium 1.8, Troponin I < 0.015 08/26/19 19:08: Troponin I < 0.015 08/27/19 07:05: WBC 6.3, RBC 3.29 L, Hgb 9.8 L, Hct 29.9 L, MCV 90.9, MCH 29.8, MCHC 32.8, RDW Std Deviation 42.1, RDW Coeff of Laura 12.7, Plt Count 373, MPV 9.4, Immature Gran % (Auto) 0.200, Neut % (Auto) 63.9, Lymph % (Auto) 25.8, [place] % (Auto) 7.7, Eos % (Auto) 1.9, Baso % (Auto) 0.5, Absolute Neuts (auto) 4.0, Absolute Lymphs (auto) 1.62, Nucleated RBC % 0 08/27/19 07:05: Sodium 141, Potassium 3.6, Chloride 107, Carbon Dioxide 30.0, Anion Gap 4 L, BUN 9, Creatinine 0.72, Estim Creat Clear Calc 46.50, Est GFR (MDRD) Af Amer 104, Est GFR (MDRD) Non-Af 86, BUN/Creatinine Ratio 12.5, Glucose 87, Calcium 8.5, Triglycerides 142, Cholesterol 181, LDL Cholesterol 112, VLDL Cholesterol 28, HDL Cholesterol 41 Current Medications Acetaminophen (Tylenol) 650 mg PO Q6H PRN PRN PRN Reason: Non-cardiac pain (-06/29) Last Admin: 08/27/19 06:10 Dose: 650 mg Documented by: Hydrocodone Bitart/Acetaminophen (Buna 5mg-325mg) 1 - 2 tablet PO Q4H PRN PRN PRN Reason: Pain Score 4-10/10 Al Hydroxide/Mg Hydroxide (Mylanta Ii) 15 - 30 ml PO Q4H PRN PRN PRN Reason: INDIGESTION Albuterol Sulfate (Ventolin Aerosols) 2.5 mg INHALATION Q2H PRN PRN PRN Reason: dyspnea, wheezing Aspirin (Ecotrin) 81 mg PO DAILY@0800 [facility] Budesonide (Pulmicort Aerosol) 0.5 mg INHALATION BID.RT [facility] Last Admin: 08/27/19 06:50 Dose: Not Given Documented by: Clonazepam (Klonopin) 0.5 mg PO DAILY [facility] Last Admin: 08/27/19 06:09 Dose: 0.5 mg Documented by: Dextrose (D50w Syringe) 0 gm IV X1 PRN; Protocol PRN Reason: Hypoglycemia Dicyclomine HCl (Bentyl) 20 mg PO TID PRN PRN Reason: abdominal cramping Enoxaparin Sodium (Lovenox) 60 mg SC Q12@0600,1800 [facility] Last Admin: 08/27/19 06:10 Dose: 60 mg Documented by: Gabapentin (Neurontin) 400 mg PO BID [facility] Last Admin: 08/26/19 19:57 Dose: 400 mg Documented by: Glucagon () 1 mg IM .X1 PRN PRN Reason: Hypoglycemia Guaifenesin (Robitussin) 20 ml PO Q4H PRN PRN PRN Reason: COUGH Hydralazine HCl (Apresoline Iv) 10 mg IV Q4H PRN PRN PRN Reason: SBP > 160 Sodium Chloride () 1,000 mls @ 100 mls/hr IV .Q10H [facility] Last Infusion: 08/26/19 18:52 Dose: 0 mls/hr Documented by: Lactobacillus Acidophilus (Acidophilus) 2 tablet PO 4X/DAY [facility] Last Admin: 08/26/19 21:43 Dose: 2 tablet Documented by: Magnesium Hydroxide (Milk Of Magnesia) 30 ml PO DAILY PRN PRN Reason: Constipation Metronidazole (Flagyl) 500 mg PO TID [facility] Last Admin: 08/27/19 06:09 Dose: 500 mg Documented by: Morphine Sulfate () 1 - 2 mg IV Q4H PRN PRN PRN Reason: Pain Score 1-10/10 Nitroglycerin (Nitrostat) 0.4 mg SUBLINGUAL Q5M PRN PRN Reason: CARDIAC/CHEST PAIN Ondansetron HCl (Zofran) 4 mg IV Q8H PRN PRN PRN Reason: NAUSEA/VOMITING Sodium Chloride () 10 - 40 ml IV UD PRN PRN Reason: SALINE FLUSH Last Admin: 08/26/19 17:13 Dose: 10 ml Documented by: Spironolactone (Aldactone) 25 mg PO BID [facility] Last Admin: 08/26/19 21:43 Dose: 25 mg Documented by: Throat Lozenges (Cepacol Sore Throat Lozenge) 1 lozenge MUCOUS MEM Q2H PRN PRN PRN Reason: Sore Throat/Cough Trazodone HCl (Desyrel) 150 mg PO QHS [facility] Last Admin: 08/26/19 21:43 Dose: 150 mg Documented by: STROKE Vital Signs/Narrative: Vital Signs Pulse 08/27/19 07:03 72 Medical Necessity - Tobacco Use Smoking Status: Former smoker Tobacco Use: Non-smoker Assessment/Plan All Active Problems Bilateral lower extremity edema (Acute) Hypokalemia (Acute) C. difficile colitis (Resolved) Chest pain (Acute) The patient is a 69 y/o F w/ PMHx: Hx Lung CA s/p resection, Chronic COPD, HTN, HLD, IBS, recent 08/13/19 diagnosis of norovirus and c-diff ~ 2 weeks prior with regimen of flagyl currently ongoing, Anxiety who presents to the [facility] ED on 08/26/19 with now onset bilateral lower extremity pedal and ankle edema ongoing over the last several days, left greater than right with intermittent chest discomfort starting the day prior in the morning, lasting minutes, primarily onset with exertion, improves with rest. 1. Chest Pain: EKG in ED with no acute evidence of ischemia, CTPA with no demonstrated PE or arterial dissection, emphysematous changes bilateral lung chaparro with postsurgical changes in the right upper lobe, initial trop normal x 1. Admitted to the PCU, maintained on a monitored bed to assure no acute myocardial infarction with serial cardiac enzymes and EKGs which remained unremarkable. Given cardiac enzyme series and repeat EKGs unremarkable plan to continue with cardiac stress testing 08/28/2019 a.m. Plan n.p.o. after midnight, initiation of low-dose IV fluids while n.p.o. status. ASA, NG, morphine. Mag 1.8. FLP with triglycerides 142, total cholesterol 181, LDL 112, VLDL 28, HDL 41. 2. Recent Personal Hx of BL LE edema, Unclear etiology: Suspect secondary to recently discontinued hydrochlorothiazide, unclear why specifically left greater than right per patient report but resolved day prior to ED presentation. Patient did recently d/c HCTZ and transition to Spironolactone only recently initiated, may have been associated most likely, CTPA unremarkable, low suspicion for DVT as no complaint of pain or discomfort thus defer DVT US. BNP normal level. Continue cardiac evaluation as noted above. 3. Recent admission with Diagnosis norovirus, C. difficile: Patient recent presentation with diagnosis on 08/13/2019 with norovirus and c difficile. Patient with now 3rd episode c-diff, given concurrent norovirus, ? false positive but does has prior history. Currently on Flagyl regimen following recent oral vancomycin course per her PCP office. Recommend to follow-up with ID in the future if recurrent for pulse dose, alternate regimen than current flagyl and consideration of fecal transplant. 4. Tension Headache: Notable cervical and shoulder muscle strain, likely contributing, no facial discomfort w/ palpation, will dose low dose zanaflex x 1 per discussion with patient given allergy history as well as toradol dose x 1 only given #1 ongoing evaluation. 5. Chronic COPD: ATC duonebs, PRN albuterol, HOB, IS parameters. 6. Hypertension: Continue home regimen including spironolactone, PRN hydralazine. 7. Hypokalemia: Admission K+ 3.4, supplementation given, repeat level this a.m. normalized. 8. Chronic COPD: Hold home inhaler given NF, in interim will maintain on budesonide per discussion with patient, PRN albuterol, HOB, IS parameters. 9. History of lung cancer: s/p resection, CTPA with noted postsurgical changes right upper lobe. 10. Anxiety: We will continue patient home clonazepam as well as nightly high-dose trazodone. 11. DVT Prophylaxis: SCD, lovenox. Code Visit OBSV E&M: 08632 Observ/hosp same date L2
[2019-08-27] MEDS: Spironolactone 25 MG Tablet PO ×2 (09:36→21:51)
[2019-08-27] MEDS: Gabapentin 400 MG Capsule PO ×2 (09:36→20:12)
[2019-08-27] MEDS: Aspirin E.C. 81 MG Tablet PO (09:36)
[2019-08-27] MEDS: Ketorolac 30 MG/ML Syringe IV (10:31)
[2019-08-27] MEDS: 0.9% Saline Lock 10 ML Syringe IV ×3 (10:32→22:37)
[2019-08-27] MEDS: HYDROcodone Bitartrate/Apap 5/325 Tablet PO ×3 (12:14→21:51)
[2019-08-27] MEDS: traZODone 100 MG Tablet 150 MG PO (21:51)
[2019-08-27] MEDS: Ondansetron 4 MG/2 ML Vial IV (22:37)
[2019-08-28 03:48] VITALS: PULSE 65
[2019-08-28 03:50] VITALS: BP 120/55; PULSE 66; RESP 18; TEMP 36.6; O2SAT 94
[2019-08-28] MEDS: Aspirin E.C. 81 MG Tablet PO (04:05)
[2019-08-28 07:01] VITALS: PULSE 91
[2019-08-28 07:36] LABS: Absolute Lymphocyte Count 1.79 X10^3/uL (0.83-4.51); Absolute Neutrophil Count 3.2 X10^3/uL (2.0-7.7); Basophil# 0.02 X10^3/uL; Basophil% 0.4 % (0-1); Eosinophil# 0.13 X10^3/uL; Eosinophils% 2.3 % (0-5); Hematocrit 31.4 % (37-47); Hemoglobin 10.1 g/dL (12.0-15.0); Lymphocyte # 1.79 X10^3/ul (4.0); Lymphocyte % 31.8 % (19-41); Mean Corp Hgb Conc 32.2 g/dL (32-36); Mean Corpuscular Hgb 29.6 pg (27.0-32.0); Mean Corpuscular Volume 92.1 fL (81-99); Mean Platelet Vol. 9.2 fl (6.2-12.0); Monocyte# 0.49 X10^3/uL; Monocyte% 8.7 % (0-10); NRBC Flagged by Analyzer 0 % (0-5); Neutrophil # 3.19 X10^3/uL (2.7-7.7); Neutrophil % 56.6 % (47-70); Platelet Count 382 K/mm3 (150-450); RBC Distribution Width CV 12.9 % (11.6-14.6); RBC Distribution Width SD 43.4 fl (35.1-43.9); Red Blood Count 3.41 M/mm3 (4.2-5.4); White Blood Count 5.6 K/mm3 (4.4-11.0)
[2019-08-28 08:07] LABS: Anion Gap 5 (5-15); BUN 12 mg/dL (7-18); BUN/Creat Ratio 15.7 RATIO (10-20); Calcium,Total 8.3 mg/dL (8.5-10.1); Chloride 108 mmol/L (98-107); Creatinine, Serum 0.76 mg/dL (0.55-1.02); EST Glomerular Filtration Rate 80 mL/min (>60); Est Glom Filt Rate - Afr Amer 97 mL/min (>60); Glucose 82 mg/dL (74-106); Potassium 3.6 mmol/L (3.5-5.1); Sodium Level 142 mmol/L (136-145)
[2019-08-28 08:55] VITALS: BP 135/72; PULSE 77; RESP 18; TEMP 36.6; O2SAT 95
[2019-08-28] MEDS: clonazePAM 0.5 MG Tablet PO (11:22)
[2019-08-28] MEDS: Spironolactone 25 MG Tablet PO (11:23)
[2019-08-28] MEDS: HYDROcodone Bitartrate/Apap 5/325 Tablet PO (11:23)
--- NOTE | 2019-08-28 11:45 | CASEMGMT ---
Case Management Progress Note: Went to patient bedside, introduced self and role. Explained and reviewed [employer] form with patient in regards to current treatment of chest pain during this hospital admission. Informed Outpatient billing is determined by her insurance policy and status is continually reviewed for any changes in condition that may warrant Inpatient stay. Acknowledges and agrees. Denies any questions, issues or concerns regarding [employer] form. Signed [employer] form which was placed in patient hard chart and patient provided a copy. Fern Muñiz RNCM
--- NOTE | 2019-08-28 13:29 | STRESSREP_ITS ---
Stress Test Report Exercise myocardial perfusion stress test. 69-year-old lady with a history of chest pain. Stress protocol: Resting EKG demonstrates normal sinus rhythm with a rate of 70 bpm normal intervals are noted resting blood pressures 148/80 mmHg. The patient exercised according to regular Kostas protocol for total duration of 5 minutes patient c ompleted 2 minutes into stage II of the Kostas protocol. The maximum heart rate attained was 146 bpm which was 96% of maximum predicted heart rate the maximum workload was 7 metabolic equivalents. Patient maintained sinus rhythm throughout the recording. At rest there were no ST or T wave changes noted suggest ischemia peak exercise upsloping ST changes were noted with no meet the criteria for ischemia. Resting blood pressures 148/80 mmHg with a peak blood pressure 170/70 mmHg. No clinical angina was noted. Rate-pressure product was 24,800. Myocardial perfusion protocol. 11.6 mCi of technetium 99m sestamibi was injected at rest. The patient exercised according to regular Kostas protocol for 5 minutes at peak exercise 35.0 mCi of technetium 99m sestamibi was injected. Stress images were obtained stress and rest images were reconstructed and compared in the short axis vertical long horizontal long axis. Gated images were also obtained. Perfusion SPECT analysis: Review of the images demonstrate normal uptake of tracer noted in all areas of the myocardium the resting images similarly demonstrate normal uptake of tracer noted in all areas of the myocardium. No areas of reversibility are noted just ischemia no previous infarct is noted. Gated SPECT analysis: The gated ejection fraction is noted to be 75%. Conclusion: Normal exercise myocardial perfusion stress test at the moderate workload. Preserved ejection fraction.
--- NOTE | 2019-08-28 14:21 | PCM.DC ---
- Discharge Diagnoses Current Active Problems: Current Active and Chronic Problems Bilateral lower extremity edema (Acute) Hypokalemia (Acute) Chronic obstructive pulmonary disease (Chronic) Former tobacco use (Chronic) Anxiety (Chronic) Chest pain (Acute) HLD (hyperlipidemia) (Chronic) History of lung cancer (Chronic) You will use the following diet at home:: No restrictions Allergies/Adverse Reactions: Allergies cyclobenzaprine [From Flexeril] Adverse Reaction (Verified 08/26/19 11:24) Other ARMS AND LEGS GO CRAZY tizanidine Adverse Reaction (Verified 08/26/19 11:24) Nausea Medications to take at Discharge Clonazepam 0.5 mg PO DAILY 08/12/19 Gabapentin [Neurontin] 400 mg PO BID 08/12/19 Umeclidinium [place] [Incruse Ellipta] 1 inh INHALATION DAILY 08/12/19 traZODone [Desyrel] 150 mg PO QHS 08/12/19 Metronidazole 500 mg PO TID 08/26/19 Spironolactone 25 mg PO BID 08/26/19 Primary Care Physician: Carlito Rodrigues DO [Primary Care Provider] - Within 2 Weeks Test Results: Test results from this visit will be discussed in further detail at your follow-up appointment, if applicable. Proposed Discharge Date: 08/28/19
--- NOTE | 2019-08-28 14:22 | PCM.DC.SUM ---
Discharge Date and Diagnosis - Problem List Patient Problems: Active and Suspected Problems Bilateral lower extremity edema (Acute) Hypokalemia (Acute) Chest pain (Acute) Date of Admission: 08/26/19 Date of Discharge: 08/28/19 - Primary Discharge Diagnosis Active and Suspected Problems Bilateral lower extremity edema (Acute) Hypokalemia (Acute) Chest pain (Acute) - Secondary Discharge Diagnosis Chronic Problems HTN (hypertension) (Chronic) Chronic obstructive pulmonary disease (Chronic) Former tobacco use (Chronic) Anxiety (Chronic) HLD (hyperlipidemia) (Chronic) History of lung cancer (Chronic) Hospital Course and Treatment Imaging Results: 08/28/19 08:00 Nuclear Stress Test - Chemical [NM] Routine Clinical Impression(s) from Imaging Studies Chest CTA 08/26/19 12:54 IMPRESSION: 1. No demonstrated pulmonary embolism or arterial dissection. 2. Emphysematous changes in the bilateral lung [place]. There are also postsurgical changes in the right upper lobe. 3. Atherosclerotic calcification of the thoracic aorta. No demonstrated aneurysm. Electronically Signed: Reece Woodard MD at 14:01 EST , Service support , Operations: None Procedures: Stress test Summary of Care Provided: The patient is a 69 year old F presents with chest pain and swelling in her feet. Patient states that she awoke with a swelling of her feet and she was all having chest pain, she called her doctor advised her to come to the emergency room. In the emergency room, patient had a d-dimer that was elevated at 0.72. Patient did undergo a CT angiogram of the chest that was unremarkable. With chest pain, patient did undergo a stress test today that was normal. Patient states the swelling her feet is improved. Patient was expressing why she is having swelling in her feet and asked her specifically she was having swelling in her legs which she denied. I told her that unlikely related with the bilateral lower extremity DVTs as likelihood of that would be very very low. Patient is on spironolactone. Patient had been on HCTZ in the past but been stopped due to hypokalemia. Reassured the patient that she does not necessitate any further inpatient evaluation of her lower extremity edema which which she does not have any at this time. She may follow-up with her primary care physician for further evaluation of lower extremity edema such as duplex of lower extremities but that feel that that in any context is of low yield. [] Patient Problems: Active and Suspected Problems Bilateral lower extremity edema (Acute) Hypokalemia (Acute) Chest pain (Acute) - Physical Exam Vitals/I&O's: Vital Signs Temp Pulse Resp BP Pulse Ox 36.6 C 77 18 135/72 H 95 08/28/19 08:55 08/28/19 08:55 08/28/19 08:55 08/28/19 08:55 08/28/19 08:55 Oxygen Delivery Method Room Air Weight: 63.3 kg Body Mass Index (BMI) 23.9 Intake and Output for Last 24 Hours 08/26/19 08/27/19 08/28/19 23:59 23:59 23:59 Intake Total 165 / 515 5 / 5 1190 / 1190 Balance 165 / 515 1954 / 2174 1190 / 1190 General: Alert, Cooperative, No apparent distress HEENT: Atraumatic, Normocephalic Extremities: No edema, No Calf Tenderness Psych/Mental Status: Normal Affect, Appropriate Laboratory Results 08/28/19 07:11: WBC 5.6, RBC 3.41 L, Hgb 10.1 L, Hct 31.4 L, MCV 92.1, MCH 29.6, MCHC 32.2, RDW Std Deviation 43.4, RDW Coeff of Laura 12.9, Plt Count 382, MPV 9.2, Immature Gran % (Auto) 0.200, Neut % (Auto) 56.6, Lymph % (Auto) 31.8, Gaines % (Auto) 8.7, Eos % (Auto) 2.3, Baso % (Auto) 0.4, Absolute Neuts (auto) 3.2, Absolute Lymphs (auto) 1.79, Nucleated RBC % 0 08/28/19 07:11: Sodium 142, Potassium 3.6, Chloride 108 H, Carbon Dioxide 29.0, Anion Gap 5, BUN 12, Creatinine 0.76, Estim Creat Clear Calc 46.50, Est GFR (MDRD) Af Amer 97, Est GFR (MDRD) Non-Af 80, BUN/Creatinine Ratio 15.7, Glucose 82, Calcium 8.3 L Current Medications Acetaminophen (Tylenol) 650 mg PO Q6H PRN PRN PRN Reason: Non-cardiac pain (4-10/10) Last Admin: 08/27/19 06:10 Dose: 650 mg Documented by: Hydrocodone Bitart/Acetaminophen ([place] 5mg-325mg) 1 - 2 tablet PO Q4H PRN PRN PRN Reason: Pain Score 4-10/10 Last Admin: 08/28/19 11:23 Dose: 1 tablet Documented by: Al Hydroxide/Mg Hydroxide (Mylanta Ii) 15 - 30 ml PO Q4H PRN PRN PRN Reason: INDIGESTION Albuterol Sulfate (Ventolin Aerosols) 2.5 mg INHALATION Q2H PRN PRN PRN Reason: dyspnea, wheezing Aspirin (Ecotrin) 81 mg PO DAILY@0800 COUNT INCLUDES THE [facility] Last Admin: 08/28/19 04:05 Dose: 81 mg Documented by: Budesonide (Pulmicort Aerosol) 0.5 mg INHALATION BID.RT COUNT INCLUDES THE [facility] Last Admin: 08/28/19 07:30 Dose: Not Given Documented by: Clonazepam (Klonopin) 0.5 mg PO DAILY COUNT INCLUDES THE [facility] Last Admin: 08/28/19 11:22 Dose: 0.5 mg Documented by: Dextrose (D50w Syringe) 0 gm IV X1 PRN; Protocol PRN Reason: Hypoglycemia Dicyclomine HCl (Bentyl) 20 mg PO TID PRN PRN Reason: abdominal cramping Enoxaparin Sodium (Lovenox) 40 mg SC DAILY@0600 COUNT INCLUDES THE [facility] Last Admin: 08/27/19 18:58 Dose: Not Given Documented by: Gabapentin (Neurontin) 400 mg PO BID COUNT INCLUDES THE [facility] Last Admin: 08/28/19 11:24 Dose: Not Given Documented by: Glucagon () 1 mg IM .X1 PRN PRN Reason: Hypoglycemia Guaifenesin (Robitussin) 20 ml PO Q4H PRN PRN PRN Reason: COUGH Hydralazine HCl (Apresoline Iv) 10 mg IV Q4H PRN PRN PRN Reason: SBP > 160 Sodium Chloride () 1,000 mls @ 100 mls/hr IV .Q10H COUNT INCLUDES THE [facility] Last Admin: 08/28/19 11:24 Dose: Not Given Documented by: Lactobacillus Acidophilus (Acidophilus) 2 tablet PO 4X/DAY COUNT INCLUDES THE [facility] Last Admin: 08/28/19 11:24 Dose: 2 tablet Documented by: Magnesium Hydroxide (Milk Of Magnesia) 30 ml PO DAILY PRN PRN Reason: Constipation Metronidazole (Flagyl) 500 mg PO TID COUNT INCLUDES THE [facility] Last Admin: 08/27/19 23:22 Dose: Not Given Documented by: Morphine Sulfate () 1 - 2 mg IV Q4H PRN PRN PRN Reason: Pain Score 1-10/10 Nitroglycerin (Nitrostat) 0.4 mg SUBLINGUAL Q5M PRN PRN Reason: CARDIAC/CHEST PAIN Ondansetron HCl (Zofran) 4 mg IV Q8H PRN PRN PRN Reason: NAUSEA/VOMITING Last Admin: 08/27/19 22:37 Dose: 4 mg Documented by: Sodium Chloride () 10 - 40 ml IV UD PRN PRN Reason: SALINE FLUSH Last Admin: 08/27/19 22:37 Dose: 20 ml Documented by: Spironolactone (Aldactone) 25 mg PO BID COUNT INCLUDES THE [facility] Last Admin: 08/28/19 11:23 Dose: 25 mg Documented by: Throat Lozenges (Cepacol Sore Throat Lozenge) 1 lozenge MUCOUS MEM Q2H PRN PRN PRN Reason: Sore Throat/Cough Trazodone HCl (Desyrel) 150 mg PO QHS COUNT INCLUDES THE [facility] Last Admin: 08/27/19 21:51 Dose: 150 mg Documented by: Discharge Diet: No Restrictions Home Medications: Medications to take at Discharge Clonazepam 0.5 mg PO DAILY 08/12/19 Gabapentin [Neurontin] 400 mg PO BID 08/12/19 Umeclidinium [place] [Incruse Ellipta] 1 inh INHALATION DAILY 08/12/19 traZODone [Desyrel] 150 mg PO QHS 08/12/19 Metronidazole 500 mg PO TID 08/26/19 Spironolactone 25 mg PO BID 08/26/19 Primary Care Physician: Carlito Rodrigues DO [Primary Care Provider] - Within 2 Weeks Disposition: Home Minutes spent on discharge:: 28 Patient Condition:: Good Medical Necessity - Tobacco Use Smoking Status: Former smoker Tobacco Use: Non-smoker Meaningful Use Info Meaningful Use Diagnoses (Choose all that apply): None applicable Code Visit OBSV E&M: 10144 Observation care discharge
[2019-08-28 14:40] VITALS: BP 143/73; PULSE 79; RESP 16; TEMP 36.7; O2SAT 94
[2019-08-28] MEDS: metroNIDAZOLE 500 MG Tablet PO (14:41)
--- NOTE | 2019-08-28 14:46 | PHA.DC.MR ---
Pharmacy Service has performed discharge medication reconciliation for this patient. No new medications given at time of discharge. Medications reviewed are previously reported home medications. The patient's discharge medication list was reviewed for discrepancies and discrepancies were resolved. Home Medications Clonazepam 0.5 mg PO DAILY 08/12/19 Gabapentin [Neurontin] 400 mg PO BID 08/12/19 Umeclidinium [place] [Incruse Ellipta] 1 inh INHALATION DAILY 08/12/19 traZODone [Desyrel] 150 mg PO QHS 08/12/19 Metronidazole 500 mg PO TID 08/26/19 Spironolactone 25 mg PO BID 08/26/19
== END 2019-08-28 16:56 | disposition home or self-care (01) ==
LOC: ED 12:07 → PCU 15:32
PROVIDERS: Admitting Provider Family Medicine; Emergency Provider Emergency Medicine; Family Provider Student in an Organized Health Care Education/Training Program; PCP Student in an Organized Health Care Education/Training Program; Referring Provider Family Medicine
DX: R07.89 Other chest pain (principal); M79.89 Other specified soft tissue disorders; R60.0 Localized edema; E87.6 Hypokalemia; I25.10 Atherosclerotic heart disease of native coronary artery without angina pectoris; J44.9 Chronic obstructive pulmonary disease, unspecified; E78.5 Hyperlipidemia, unspecified; F41.9 Anxiety disorder, unspecified; I10 Essential (primary) hypertension; K58.9 Irritable bowel syndrome, unspecified; G44.209 Tension-type headache, unspecified, not intractable; R06.09 Other forms of dyspnea; F32.9 Major depressive disorder, single episode, unspecified; Z85.118 Personal history of other malignant neoplasm of bronchus and lung; Z79.899 Other long term (current) drug therapy; Z87.891 Personal history of nicotine dependence
CPT/HCPCS: 36415; 71275; 78452; 80048; 80053; 80061; 83735; 83880; 84484; 85025; 85379; 93005; 93017; 94640; 96361; 96372; 96374; 96375; 99218; 99251; 99284; A9500; J7030; Q9967; A4216; G0378; G0463; J2405; J2785

== ENCOUNTER → 2020-05-06 17:03 | Outpatient (CLI) | payer MEDICARE, SELFPAY ==
[2019-08-26 15:51] VITALS: BMI 23.9
== END ==
PROVIDERS: PCP Student in an Organized Health Care Education/Training Program
DX: Z20.828 Contact with and (suspected) exposure to other viral communicable diseases (principal)
CPT/HCPCS: 87635; 94799; U0003

== ENCOUNTER 2020-05-07 16:15 | Emergency (ER) | payer MEDICARE, SELFPAY ==
[2019-08-26 15:51] VITALS: BMI 23.9
[2020-05-07 16:16] VITALS: BP 161/82; PULSE 84; RESP 18; TEMP 36.1; O2SAT 99; BMI 24.0
[2020-05-07 16:47] VITALS: BP 153/76; PULSE 72; RESP 16; TEMP 36.6; O2SAT 96
--- NOTE | 2020-05-07 17:13 | ED.VISSUMM ---
- ER Visit Summary Date of Service: 05/07/20 Chief Complaint: Cough History of Present Illness: The patient is a [address] Rodrigues. She reports that she has a cough that began 2 days ago. Is nonproductive. She denies any fever. She does report she is had chills. She is a sore throat that is 7 out of 10 in severity. She reports that she has moderate shortness of breath with coughing or walking. Patient denies any known exposure to COVID. She had a test obtained yesterday at 515. The results of this are not back. Patient denies abdominal pain. She is had nausea without vomiting. She reports has had 3 episodes of diarrhea today. No blood in her stools or black tarry stools. She complains of these myalgias. She has a headache is 7 on 10 severity. She does have history of similar headaches. She also complains of generalized weakness. Physical Examination: Vitals: Stable. Afebrile. General: Well-nourished and well-developed. Head: Normocephalic atraumatic. HEENT: Posterior oropharyngeal erythema. No tonsillar exudate or enlargement. No cervical lymphadenopathy. Neck: Supple, no lymphadenopathy. No JVD. Nontender. Cardiovascular: Regular rate and rhythm. No murmurs. Respiratory: No respiratory distress. Clear to auscultation bilaterally. Abdominal: Soft, nontender, nondistended, normal bowel sounds. No guarding, rebound, or peritoneal signs. Back: Nontender. Extremities: Nontender, no edema. Skin: Normal color, no rash. Neurologic: Alert and oriented ?3. Cranial nerves II through XII are intact. Normal strength and sensation. Psych: Normal affect. Test Results: CBC shows segmented neutrophils 71. Chem-7 is normal. Lactic acid is 1.5. Cover test was sent and pending. Chest x-ray shows chronic changes. Clinical Impression(s) from Imaging Studies Chest X-Ray 05/07/20 18:10 IMPRESSION: COPD without acute cardiopulmonary disease or major interval change. Electronically Signed: Miko Mcdonald DO at 18:57 EDT Tel [phone], Service support , Emergency Department Course and Treatment: Patient had an IV placed. She given 500 cc bolus of normal saline. She was given Tylenol. She is resting comfortably. Treatment Plan: The patient very well may have a COVID-19 infection. She is instructed to quarantine for the next 2 weeks. She is not hypoxic. She does have underlying COPD and will be discharged with Zithromax and a burst of prednisone. Follow-up with her primary care physician in 10 to 14 days for another exam. Return to the emergency department for any worsening symptoms. Disposition: To home in improved and stable condition. Impression: 1. COPD exacerbation. 2. Suspected COVID-19 infection. This note was generated with [email or web address] dictation software. It may contain incorrect words, spelling, and punctuation that were not noted in review of the chart prior to signing ED Disposition - Plan for ED Patient: Instructions: ED COPD Flare Prescriptions: Prednisone [Deltasone] 40 mg PO DAILY #10 tab Prescription Printed Azithromycin [Zithromax Z-Bo] 250 mg PO UD #1 box Prescription Printed Ondansetron [Zofran Odt] 4 mg PO Q8H PRN PRN #10 tab PRN Reason: Nausea Prescription Printed Referrals: Carlito Rodrigues DO [Primary Care Provider] - 10-14 Days if not better
[2020-05-07] MEDS: Acetaminophen 500 MG Tablet 1000 MG PO (17:45)
[2020-05-07 17:51] LABS: Absolute Lymphocyte Count 1.74 X10^3/uL (0.83-4.51); Absolute Neutrophil Count 5.8 X10^3/uL (2.0-7.7); Basophil# 0.02 X10^3/uL; Basophil% 0.2 % (0-1); Eosinophil# 0.06 X10^3/uL; Eosinophils% 0.7 % (0-5); Hematocrit 36.5 % (37-47); Hemoglobin 12.1 g/dL (12.0-15.0); Lymphocyte # 1.74 X10^3/ul (4.0); Lymphocyte % 21.3 % (19-41); Mean Corp Hgb Conc 33.2 g/dL (32-36); Mean Corpuscular Volume 90.3 fL (81-99); Mean Platelet Vol. 9.6 fl (6.2-12.0); Monocyte# 0.56 X10^3/uL; Monocyte% 6.9 % (0-10); NRBC Flagged by Analyzer 0 % (0-5); Neutrophil # 5.75 X10^3/uL (2.7-7.7); Neutrophil % 70.7 % (47-70); Platelet Count 343 K/mm3 (150-450); RBC Distribution Width CV 11.8 % (11.6-14.6); RBC Distribution Width SD 38.7 fl (35.1-43.9); Red Blood Count 4.04 M/mm3 (4.2-5.4); White Blood Count 8.2 K/mm3 (4.4-11.0)
[2020-05-07 17:53] LABS: Anion Gap 5 (5-15); BUN 14 mg/dL (7-18); BUN/Creat Ratio 15.4 RATIO (10-20); Calcium,Total 8.6 mg/dL (8.5-10.1); Chloride 107 mmol/L (98-107); Creatinine, Serum 0.91 mg/dL (0.55-1.02); EST Glomerular Filtration Rate 65 mL/min (>60); Est Glom Filt Rate - Afr Amer 79 mL/min (>60); Estimated Creatinine Clearance 50.38 ml/min; Glucose 92 mg/dL (74-106); Potassium 3.5 mmol/L (3.5-5.1); Sodium Level 140 mmol/L (136-145)
[2020-05-07 17:54] VITALS: BP 147/78; PULSE 71; RESP 17; TEMP 36.4; O2SAT 98
[2020-05-07 18:00] VITALS: BP 149/72; PULSE 71; RESP 18; TEMP 36.3; O2SAT 98
[2020-05-07 18:02] LABS: Lactic Acid 1.5 mmol/L (0.4-1.9)
--- NOTE | 2020-05-07 18:10 | RAD_ITS ---
STUDY: X-RAY CHEST REASON FOR EXAM: Female, 70 years old. Headache with chills and cough. TECHNIQUE: PA and lateral views of the chest. COMPARISON: CTA of the chest, 08/26/2019. FINDINGS: There is hyperinflation of the lungs consistent with chronic obstructive lung disease (COPD). No focal mass or infiltrate. There is no demonstrated pleural abnormality. Normal size heart. Normal mediastinum and edmund. Normal visualized pulmonary arteries. There is atherosclerotic calcification of the aortic arch with tortuosity. There are diffuse degenerative changes of the visualized thoracic spine. There is degenerative osteoarthritis of the bilateral shoulders. There is no demonstrated abnormality of the visualized soft tissue structures of the upper abdomen. RAD/Chest PA and Lateral IMPRESSION: COPD without acute cardiopulmonary disease or major interval change. Electronically Signed: Miko Mcdonald DO at 18:57 EDT Tel [phone], Service support ,
[2020-05-07] MEDS: predniSONE 20 MG Tablet 40 MG PO (19:29)
[2020-05-07] MEDS: Ondansetron ODT 4 MG Tablet PO (19:29)
[2020-05-07] MEDS: Azithromycin 250 MG Tablet 500 MG PO (19:29)
[2020-05-07 19:40] VITALS: BP 138/71; PULSE 71; RESP 16; TEMP 36.6
== END 2020-05-07 19:50 | disposition home or self-care (01) ==
LOC: ED 17:07
PROVIDERS: Emergency Provider Emergency Medicine; PCP Student in an Organized Health Care Education/Training Program
DX: J44.1 Chronic obstructive pulmonary disease with (acute) exacerbation (principal); Z20.828 Contact with and (suspected) exposure to other viral communicable diseases; I10 Essential (primary) hypertension; Z86.73 Personal history of transient ischemic attack (TIA), and cerebral infarction without residual deficits; Z85.118 Personal history of other malignant neoplasm of bronchus and lung
CPT/HCPCS: 71046; 80048; 83605; 85025; 87040; 96360; 96361; 99285; J7040; A4216